=== PATIENT | female | born 1970 | race African-American/Black ===

== ENCOUNTER 2018-04-01 16:55 | Emergency (ER) | payer OTHER ==
[~2018-04-01] VITALS: Ht 162.6 cm; Wt 90.7 kg
[2018-04-01 17:29] VITALS: BP 126/80
--- NOTE | 2018-04-01 17:34 | PHYS DOC ---
Adult General Chief Complaint Chief Complaint: UPPER EXTREMITY PAIN HPI HPI Patient is a 47 year old female who presents with a request for medication for her carpal tunnel to her right wrist. The patient states that she is unable to get into her doctor and she is leaving to go on a cruise. She states that her carpal tunnel has been significantly acting up. She denies any recent injury. Review of Systems Review of Systems Constitutional: Denies fever or chills [] Eyes: Denies change in visual acuity, redness, or eye pain [] HENT: Denies nasal congestion or sore throat [] Respiratory: Denies cough or shortness of breath [] Cardiovascular: No additional information not addressed in HPI [] GI: Denies abdominal pain, nausea, vomiting, bloody stools or diarrhea [] : Denies dysuria or hematuria [] Musculoskeletal: See history of present illness Integument: Denies rash or skin lesions [] Neurologic: Denies headache, focal weakness or sensory changes [] Endocrine: Denies polyuria or polydipsia [] All other systems were reviewed and found to be within normal limits, except as documented in this note. Current Medications Current Medications Current Medications Medications (Trade) Dose Ordered Sig/Nancy Start Time Stop Time Status Last Admin Dose Admin Methylprednisolone Acetate (DEPO-Medrol 80MG VIAL) 80 mg 1X ONCE 04/01/18 17:45 04/01/18 17:46 DC 04/01/18 17:45 80 MG Allergies Allergies Allergies Coded Allergies Type Severity Reaction Last Updated Verified Penicillins Allergy Unknown 04/01/18 Yes Physical Exam Physical Exam Constitutional: Well developed, well nourished, no acute distress, non-toxic appearance. [] HENT: Normocephalic, atraumatic, bilateral external ears normal, oropharynx moist, no oral exudates, nose normal. [] Eyes: PERRLA, EOMI, conjunctiva normal, no discharge. [] Neck: Normal range of motion, no tenderness, supple, no stridor. [] Cardiovascular:Heart rate regular rhythm, no murmur [] Lungs & Thorax: Bilateral breath sounds clear to auscultation [] Abdomen: Bowel sounds normal, soft, no tenderness, no masses, no pulsatile masses. [] Skin: Warm, dry, no erythema, no rash. [] Back: No tenderness, no CVA tenderness. [] Extremities: tenderness to the right wrist with no calor or ecchymosis noted, no cyanosis, no clubbing, ROM intact, no edema or erythema. [] Neurologic: Alert and oriented X 3, normal motor function, normal sensory function, no focal deficits noted. [] Psychologic: Affect normal, judgement normal, mood normal. [] Current Patient Data Vital Signs Vital Signs Date Time Temp Pulse Resp B/P (MAP) Pulse Ox O2 Delivery O2 Flow Rate FiO2 04/01/18 17:29 97.9 86 18 126/80 (95) 99 Room Air 97.9 EKG EKG [] Radiology/Procedures Radiology/Procedures [] Course & Med Decision Making Course & Med Decision Making Pertinent Labs and Imaging studies reviewed. (See chart for details) []The patient was given Depo-Medrol in the emergency department for inflammation. She was also placed in a Velcro wrist splint for comfort. Dragon Disclaimer Dragon Disclaimer This electronic medical record was generated, in whole or in part, using a voice recognition dictation system. Departure Departure Impression: Primary Impression: Inadequate pain control Disposition: 01 HOME, SELF-CARE Condition: STABLE Referrals: UNKNOWN PCP NAME (PCP) Patient Instructions: Carpal Tunnel Syndrome Additional Instructions: Continue to use your at home pain medication. Follow-up with your primary care provider for further management of her carpal tunnel syndrome. If worsening return to the emergency department. SUSIE MCCULLOUGH APRN Apr 01, 2018 17:34
[2018-04-01] MEDS ORDERED: methylPREDNISolone ACETATE 80 MG/ML VIAL. IM ONE (17:45)
== END 2018-04-01 17:48 | disposition home or self-care (01) ==
LOC: ER 16:55
DX: M79.601 Pain in right arm (principal); G56.01 Carpal tunnel syndrome, right upper limb; Z88.0 Allergy status to penicillin
CPT/HCPCS: 29125; 96372; 99283; J1040

== ENCOUNTER 2019-09-29 16:24 | Emergency (ER) | payer OTHER ==
[~2019-09-29] VITALS: Ht 162.6 cm; Wt 90.9 kg
[2019-09-29 16:41] VITALS: BP 132/66
[2019-09-29] MEDS ORDERED: METH-38 PO (16:55)
[2019-09-29] MEDS ORDERED: NAPR-514 PO (16:55)
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
[2019-09-29] MEDS ORDERED: KETOROLAC 60 MG/2 ML VIAL. IM ONE (17:00)
[2019-09-29] MEDS ORDERED: ORPHENADRINE CITRATE 60 MG/2 ML VIAL. IM ONE (17:00)
== END 2019-09-29 17:01 | disposition home or self-care (01) ==
LOC: ER 16:34
DX: S33.5XXA Sprain of ligaments of lumbar spine, initial encounter (principal); M25.572 Pain in left ankle and joints of left foot; V49.9XXA Car occupant (driver) (passenger) injured in unspecified traffic accident, initial encounter; Y93.89 Activity, other specified; Y92.413 State road as the place of occurrence of the external cause; Y99.8 Other external cause status
CPT/HCPCS: 96372; 99284; J1885; J2360

== ENCOUNTER 2021-06-16 16:29 | Emergency (ER) | payer BC, OTHER ==
[~2021-06-16] VITALS: Ht 162.6 cm; Wt 97.7 kg
[~2021-06-16 16:29] MED LIST: METH-38 PO; NAPR-514 PO
[2021-06-16] MEDS ORDERED: ASPIRIN 325 MG TABLET PO ONE (17:00)
[2021-06-16 17:02] LABS: BASO # 0.1 x10^3/uL (0.0-0.2); BASO % 1 % (0-3); EOS # 0.1 x10^3/uL (0.0-0.7); EOS % 2 % (0-3); HEMATOCRIT 46.1 % (36.0-47.0); HEMOGLOBIN 15.3 g/dL (12.0-15.5); LYMPH # 1.4 x10^3/uL (1.0-4.8); LYMPH % 21 % (24-48); MEAN CORPUSCULAR HEMOGLOBIN 31 pg (25-35); MEAN CORPUSCULAR HGB CONC 33 g/dL (31-37); MEAN CORPUSCULAR VOLUME 93 fL (79-100); MONO # 0.3 x10^3/uL (0.0-1.1); MONO % 5 % (0-9); NEUT # 4.6 x10^3/uL (1.8-7.7); NEUT % 70 % (31-73); PLATELET COUNT 238 x10^3/uL (140-400); RED BLOOD COUNT 4.99 x10^6/uL (3.50-5.40); RED CELL DISTRIBUTION WIDTH 14.1 % (11.5-14.5); WHITE BLOOD COUNT 6.5 x10^3/uL (4.0-11.0)
[2021-06-16] MEDS: NITROGLYCERIN SUBLINGUAL 0.4 MG BOTTLE OF 25. SL PRN ×3 (17:13→18:07)
--- NOTE | 2021-06-16 17:13 | RAD ---
EXAM: Chest, single view. HISTORY: Chest pain. COMPARISON: None. FINDINGS: A frontal view of the chest is obtained. There is no infiltrate, pleural effusion or pneumo thorax. The heart is normal in size. IMPRESSION: No acute pulmonary finding. Electronically signed by: Anais Bradford MD (06/16/2021 5:10 PM) [facility]
[2021-06-16 17:21] LABS: CALCIUM 9.4 mg/dL (8.5-10.1); CREATININE 0.9 mg/dL (0.6-1.0); GFR 79.9; POTASSIUM 3.8 mmol/L (3.5-5.1)
[2021-06-16 17:27] LABS: ALBUMIN/GLOBULIN RATIO 1.1 (1.0-1.7); MAGNESIUM 1.9 mg/dL (1.8-2.4); TOTAL BILIRUBIN 0.4 mg/dL (0.2-1.0); TOTAL PROTEIN 7.6 g/dL (6.4-8.2)
[2021-06-16 17:28] LABS: BILIRUBIN,URINE NEGATIVE (NEG); CLARITY,URINE CLEAR; COLOR,URINE YELLOW; NITRITE,URINE NEGATIVE (NEG); PH,URINE 5.5 (<5.0-8.0); PROTEIN,URINE NEGATIVE (NEG-TRACE); UROBILINOGEN,URINE 0.2 mg/dL (0.2 mg/dL)
[2021-06-16 17:46] LABS: BACTERIA,URINE FEW /HPF (0-FEW); WBC,URINE OCC /HPF (0-4)
--- NOTE | 2021-06-16 18:05 | ED.ADGEN ---
Past Medical History Past Medical History: No Pertinent History Additional Past Medical Histor: FIBROMYALGIA Past Surgical History: Other Additional Past Surgical Histo: BREAST REDUCTION Smoking Status: Never Smoker Alcohol Use: Rarely Drug Use: None General Adult EDM: Chief Complaint: CHEST PAIN HPI: HPI: Patient is a 51 year old AA male who presents to the emergency department with complaints of substernal chest pain that began at approximately 1300 this afternoon when she was arguing with someone. Patient states that ever since then she has had a sharp pain in the center of her chest it does not get worse with deep breath, palpation, or movement. She states that the pain has been constant. Patient denies any diaphoresis, fever, cough, shortness of breath, wheezing, nausea, vomiting, abdominal pain, back pain, numbness, tingling, or weakness. She currently rates the pain a 10 out of 10 on the pain scale, she denies any alleviating or exacerbating factors. Patient reports her only medical history is fibromyalgia, she denies any family history of heart disease. Review of Systems: Review of Systems: Complete ROS is negative unless otherwise noted in the HPI. Current Medications: Current Medications Medications (Trade) Dose Ordered Sig/Nancy Start Time Stop Time Status Last Admin Dose Admin Aspirin (Arlyn Aspirin) 325 mg 1X ONCE 06/16/21 17:00 06/16/21 17:01 DC 06/16/21 17:13 325 MG Info (CONTRAST GIVEN -- Rx MONITORING) 1 each PRN DAILY PRN 06/16/21 20:45 06/16/21 23:04 DC Iohexol (Omnipaque 350 Mg/ml) 100 ml 1X ONCE 06/16/21 21:00 06/16/21 21:01 DC 06/16/21 21:07 100 ML Ketorolac Tromethamine (Toradol 15mg Vial) 15 mg 1X ONCE 06/16/21 23:00 06/16/21 23:01 DC 06/16/21 22:54 15 MG Nitroglycerin (Nitrostat) 0.4 mg PRN Q5MIN PRN 06/16/21 17:00 06/16/21 23:04 DC 06/16/21 18:07 0.4 MG Allergies: Allergies: Allergies Coded Allergies Type Severity Reaction Last Updated Verified Penicillins Allergy Unknown 04/01/18 Yes Physical Exam: PE: See above Constitutional: Well developed, well nourished, no acute distress, non-toxic appearance, obese. [] HENT: Normocephalic, atraumatic, bilateral external ears normal, nose normal. [] Eyes: PERRLA, EOMI, conjunctiva normal, no discharge. [] Neck: Normal range of motion, no stridor. [] Cardiovascular:Heart rate regular rhythm, no murmur, S1-S2 normal Lungs & Thorax: Respirations even and unlabored, no retractions, no respiratory distress, lungs CTA, no wheeze Abdomen: soft, no tenderness Skin: Warm, dry, no erythema, no rash. [] Extremities: No cyanosis, ROM intact, no edema. [] Neurologic: Alert and oriented X 3, normal motor, normal sensory, no focal deficits noted. [] Psychologic: Affect normal, judgement normal, mood normal. [] Current Patient Data: Labs: Laboratory Tests Test 06/16/21 16:50 06/16/21 17:20 06/16/21 20:02 White Blood Count 6.5 x10^3/uL (4.0-11.0) Red Blood Count 4.99 x10^6/uL (3.50-5.40) Hemoglobin 15.3 g/dL (12.0-15.5) Hematocrit 46.1 % (36.0-47.0) Mean Corpuscular Volume 93 fL (79-100) Mean Corpuscular Hemoglobin 31 pg (25-35) Mean Corpuscular Hemoglobin Concent 33 g/dL (31-37) Red Cell Distribution Width 14.1 % (11.5-14.5) Platelet Count 238 x10^3/uL (140-400) Neutrophils (%) (Auto) 70 % (31-73) Lymphocytes (%) (Auto) 21 % (24-48) L Monocytes (%) (Auto) 5 % (0-9) Eosinophils (%) (Auto) 2 % (0-3) Basophils (%) (Auto) 1 % (0-3) Neutrophils # (Auto) 4.6 x10^3/uL (1.8-7.7) Lymphocytes # (Auto) 1.4 x10^3/uL (1.0-4.8) Monocytes # (Auto) 0.3 x10^3/uL (0.0-1.1) Eosinophils # (Auto) 0.1 x10^3/uL (0.0-0.7) Basophils # (Auto) 0.1 x10^3/uL (0.0-0.2) Sodium Level 141 mmol/L (136-145) Potassium Level 3.8 mmol/L (3.5-5.1) Chloride Level 101 mmol/L (98-107) Carbon Dioxide Level 31 mmol/L (21-32) Anion Gap 9 (6-14) Blood Urea Nitrogen 11 mg/dL (7-20) Creatinine 0.9 mg/dL (0.6-1.0) Estimated GFR (Cockcroft-Gault) 79.9 BUN/Creatinine Ratio 12 (6-20) Glucose Level 152 mg/dL (70-99) H Calcium Level 9.4 mg/dL (8.5-10.1) Magnesium Level 1.9 mg/dL (1.8-2.4) Total Bilirubin 0.4 mg/dL (0.2-1.0) Aspartate Amino Transferase (AST) 12 U/L (15-37) L Alanine Aminotransferase (ALT) 27 U/L (14-59) Alkaline Phosphatase 115 U/L (46-116) Creatine Kinase 163 U/L (26-192) Creatine Kinase MB (Mass) 1.2 ng/mL (0.0-3.6) Creatine Kinase MB Relative Index 0.7 % (0-4) Troponin I High Sensitivity 8 ng/L (4-50) 7 ng/L (4-50) Total Protein 7.6 g/dL (6.4-8.2) Albumin 4.0 g/dL (3.4-5.0) Albumin/Globulin Ratio 1.1 (1.0-1.7) Lipase 43 U/L (73-393) L Urine Color Yellow Urine Clarity Clear Urine pH 5.5 (<5.0-8.0) Urine Specific [place] 1.020 (1.000-1.030) Urine Protein Negative mg/dL (NEG-TRACE) Urine Glucose (UA) Negative mg/dL (NEG) Urine Ketones (Stick) Negative mg/dL (NEG) Urine Blood Negative (NEG) Urine Nitrite Negative (NEG) Urine Bilirubin Negative (NEG) Urine Urobilinogen Dipstick 0.2 mg/dL (0.2 mg/dL) Urine Leukocyte Esterase Negative (NEG) Urine RBC 1-2 /HPF (0-2) Urine WBC Occ /HPF (0-4) Urine Squamous Epithelial Cells Many /LPF Urine Bacteria Few /HPF (0-FEW) Urine Mucus Slight /LPF Laboratory Tests 06/16/21 16:50 Laboratory Tests 06/16/21 16:50 Vital Signs: Vital Signs Date Time Temp Pulse Resp B/P (MAP) Pulse Ox O2 Delivery O2 Flow Rate FiO2 06/16/21 22:38 98 21 161/77 (105) 100 Room Air 06/16/21 16:29 98.7 98.7 EKG: EK-sinus rhythm, rate 94, leftward axis, no STEMI, read by Dr. Allen [] Heart Score: C/O Chest Pain: Yes HEART Score for Chest Pain: HEART Score for Chest Pain Response (Comments) Value History Slighlty/Non-Suspicious 0 ECG Normal 0 Age >45 - < 65 1 Risk Factors 1 or 2 Risk Factors 1 Troponin < Normal Limit 0 Total 2 Risk Factors: Risk Factors: HTN, obesity. Risk Scores: Score 0 - 3: 2.5% MACE over next 6 weeks - Discharge Home Score 4 - 6: 20.3% MACE over next 6 weeks - Admit for Clinical Observation Score 7 - 10: 72.7% MACE over next 6 weeks - Early Invasive Strategies Radiology/Procedures: Radiology/Procedures: PROCEDURE: CHEST AP ONLY EXAM: Chest, single view. HISTORY: Chest pain. COMPARISON: None. FINDINGS: A frontal view of the chest is obtained. There is no infiltrate, pleural effusion or pneumothorax. The heart is normal in size. IMPRESSION: No acute pulmonary finding. []IMAGING REPORT Signed PATIENT: ARIANNA MONROY ACCOUNT: [id number] : 1970 LOCATION: ER AGE: 51 SEX: F EXAM STATUS: REG ER ORD. PHYSICIAN: MICHEL WILKINSON APRN REASON: r/o PE chest pain , omni 350 100 ml iv PROCEDURE: CT ANGIOGRAPHY CHEST EXAM: CT ANGIOGRAPHY OF THE CHEST WITH AND WITHOUT CONTRAST. HISTORY: Chest pain. TECHNIQUE: Computed tomographic angiography of the chest was performed before and after the intravenous administration of iodinated contrast. 3-D maximum intensity projections were also performed. One or more of the following individualized dose reduction techniques were utilized for this examination: 1. Automated exposure control. 2. Adjustment of the mA and/or kV according to patient size. 3. Use of iterative reconstruction technique. COMPARISON: None. FINDINGS: Images of the upper abdomen reveal no acute abnormality. Bone windows reveal no suspicious lesions. Well-defined 1 cm lucent focus along the right aspect of the body is likely a benign lesion such as a hemangioma in the absence of known malignancy. No pulmonary emboli are identified. There is no aortic dissection or aneurysm. There is a common origin of the left common carotid and brachiocephalic arteries, a variant of normal. There are no pathologically enlarged mediastinal or axillary lymph nodes. There is no pleural or pericardial effusion. The heart is not enlarged. Lung windows reveal no infiltrates. There is mild basilar atelectasis. IMPRESSION: 1. No pulmonary embolism. No infiltrates. Electronically signed by: Yessica Powell MD (06/16/2021 9:25 PM) [facility] DICTATED and SIGNED BY: GLENYS POWELL MD DATE: 06/16/21 [id number] 0 Course & Med Decision Making: Course & Med Decision Making Pertinent Labs and Imaging studies reviewed. (See chart for details) 51-year-old female presents emergency department with substernal chest pain that began while she was arguing with someone today. Work-up included labs, imaging, EKGs, and a CT PE study. Patient was given 324 mg of aspirin and 3 sublingual nitro. After the first nitro her pain went from a 10 out of 10 to a 7 out of 10. After the second and third nitro as her pain remained unchanged. Patient's blood pressure remained elevated throughout her stay. At 2039 the patient's blood pressure is 170/81. Her initial troponin was 8, 3-hour troponin was 7. CBC was unremarkable, CMP revealed a blood glucose of 102, CK 163, CK-MB 1.2, CK-MB index of 0.7. Otherwise unremarkable, UA was also unremarkable. Chest x-ray did not reveal any acute findings. I discussed all the results with the patient who became tachycardic while he was in the room with a rate of 105, she was not in any pain at this time her blood pressure did remained elevated at 170/81. I discussed the patient's case with Dr. Robbins who recommended a CT PE study, PE study was ordered. Dr. Robbins will follow up with patient for final disposition. I did advise the patient that she needed to follow-up with her primary care doctor for further evaluation of her elevated high blood pressure. I reevaluated patient with her mother at bedside, (patient consents to his/her/their knowledge and involvement in pts' medical care). Patient complains of sharp, sternal, nonradiating and reproducible chest pain that occurred in a stressful situation earlier today. Also reports associated palpitations. CT angio of the chest shows no aortic aneurysm, dissection or pulmonary embolus. Troponins are unremarkable. I also reviewed patient's EKGs that showed no active ischemia. On reevaluation, patient is calm, resting and feels well to return home. Reports her pain has almost resolved. Blood pressure has improved on evaluation with no evidence of renal damage. Do suspect some anxiety related component but given age and blood pressure will rec ommend for outpatient follow-up. Will discharge home with strict ED return precautions were given for worsening pain, syncope, neurologic deficits or fever. Encouraged urgent outpatient follow-up with PMD for reevaluation, consider nonemergent outpatient cardiology evaluation. Life-threatening proc esses were considered but are low suspicion at this time, given history, physical exam and ED workup. Pt was educated on all prescription medications and adverse effects. All patient's questions were answered and pt was stable at time of discharge. Life/limb-threatening differential includes but is not limited to, acute myocardial infarction, aortic dissection, congestive heart failure, esophageal injury including rupture, surgical abdomen, arrhythmia, cardiomyopathy, myocarditis, pericarditis, peptic ulcer disease, pneumomediastinum, pneumonia, pneumothorax, pulmonary embolus, unstable angina, rib fracture, contusion, pericardial tamponade or effusion, traumatic injury including mediastinal hemorrhage or hematoma, or pulmonary contusion. I have spoken with the patient and/or caregivers. I explained the patient's condition, diagnoses and treatment plan based on the information available to me at this time. I have answered the patient and/or caregiver's questions and addressed any concerns. The patient and/or caregivers have a good understanding of patient's diagnosis, condition and treatment plan as can be expected at this point. Vital signs have been stable. Patient's condition is stable and appropriate for discharge from the emergency department. Patient will pursue further outpatient evaluation with primary care physician or other designated or consulting physician as outlined in the discharge instructions. The patient and/or caregivers are agreeable to this plan of care and follow-up instructions have been explained in detail. The patient and/or caregivers have received these instructions in written form and have expressed an understanding of the discharge instructions. The patient and/or caregivers are aware that any significant change of condition or worsening of symptoms should prompt immediate return to this or the closest emergency department [facility] Disclaimer: Nisa Disclaimer: This electronic medical record was generated, in whole or in part, using a voice recognition dictation system. Departure Departure Impression: Primary Impression: Chest pain Additional Impression: High blood pressure Disposition: HOME / SELF CARE / HOMELESS Condition: STABLE Referrals: UNKNOWN PCP NAME (PCP) Follow-up with your primary care physician in 24 to 48 hours OR FOLLOW UP WITH FAMILY MEDICINE: [address] [facility], [address] [place] [address] Patient Instructions: Chest Pain (Nonspecific), [id number], Hypertension, [id number] Additional Instructions: Follow up with your primary care doctor for further evaluation of your blood pressure in the next few days FOLLOW UP WITH CARDIOLOGY: FOR DEFINITIVE MANAGEMENT [facility] [address] [facility] [address] [place] [address] EMERGENCY DEPARTMENT GENERAL DISCHARGE INSTRUCTIONS Thank you for coming to [facility] Emergency Department (ED) today and trusting us with you care. We trust that you had a positive experience in our Emergency Department. If you wish to speak to the department management, you may call the Director at [phone]. YOUR FOLLOW UP INSTRUCTIONS ARE FOLLOWS: 1. Do you have a private Doctor? If you do not have a private doctor, please ask for a resource list of physicians or clinics that may be able to assist you with follow up care. 2. The Emergency Physicain has interpreted your x-rays. The X-Ray specialist will also review them. If there is a change in the findings, you will be notified in 48 h ours when at all possible. 3. A lab test or culture has been done, your results will be reviewed and you will be notified if you need a change in treatment. ADDITIONAL INSTRUCTIONS AND INFORMATION: 1. Your care today has been supervised by a physician who is specially trained in emergency care. Many problems require more than one evaluation for a complete diagnosis and treatment. We recommend that you schedule your follow up appointment as recommended to ensure complete treatment of you illness or injury. If you are unable to obtain follow up care and continue to have a problem, or if your condition worsens, we recommend that you return to the ED. 2. We are not able to safely determine your condition over the phone nor are we able to give sound medical advice over the phone. For these safety reasons, if you call for medical advice we will ask you to come to the ED for further evaluation. 3. If you have any questions regarding these discharge instructions please call the ED at [phone]. SAFETY INFORMATION: In the interest of safety, wellness, and injury prevention; we encourage you to wear your sealbelt, if you smoke; quite smoking, and we encourage family to use a protective helmet for bicycling and other sporting events that present an increased risk for head injury. IF YOUR SYMPTOMS WORSEN OR NEW SYMPTOMS DEVELOP, OR YOU HAVE CONCERNS ABOUT YOUR CONDITION; OR IF YOUR CONDITION WORSENS WHILE YOU ARE WAITING FOR YOUR FOLLOW UP APPOINTMENT; EITHER CONTACT YOUR PRIMARY CARE DOCTOR, THE PHYSICIAN WHOSE NAME AND NUMBER YOU WERE GIVEN, OR RETURN TO THE ED IMMEDIATELY. Problem Qualifiers Primary Impression: Chest pain Chest pain type: unspecified Qualified Codes: R07.9 - Chest pain, unspecified Additional Impression: High blood pressure Hypertension type: unspecified Qualified Codes: I10 - Essential (primary) hypertension MICHEL WILKINSON APRN Jun 16, 2021 18:05 JASON ROBBINS DO Jun 16, 2021 22:03
--- NOTE | 2021-06-16 18:11 | EKG ---
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
--- NOTE | 2021-06-16 19:59 | EKG ---
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
[2021-06-16] MEDS ORDERED: CONTRAST GIVEN. MC PRN (20:45)
[2021-06-16] MEDS ORDERED: IOHEXOL 350 MG/ML 100 ML VIAL. IV ONE (21:00)
--- NOTE | 2021-06-16 21:27 | RAD ---
EXAM: CT ANGIOGRAPHY OF THE CHEST WITH AND WITHOUT CONTRAST. HISTORY: Chest pain. TECHNIQUE: Computed tomographic angiography of the chest was performed before and after the intraveno us administration of iodinated contrast. 3-D maximum intensity projections were also performed. One o r more of the following individualized dose reduction techniques were utilized for this examination: 1. Automated exposure control. 2. Adjustment of the mA and/or kV according to patient size. 3. Use of iterative reconstruction technique. COMPARISON: None. FINDINGS: Images of the upper abdomen reveal no acute abnormality. Bone windows reveal no suspicious lesions. Well-defined 1 cm lucent focus along the right aspect of the body is likely a benign lesion such as a hemangioma in the absence of known malignancy. No pulmonary emboli are identified. There is no aortic dissection or aneurysm. There is a common orig in of the left common carotid and brachiocephalic arteries, a variant of normal. There are no pathologically enlarged mediastinal or axillary lymph nodes. There is no pleural or bayron cardial effusion. The heart is not enlarged. Lung windows reveal no infiltrates. There is mild basilar atelectasis. IMPRESSION: 1. No pulmonary embolism. No infiltrates. Electronically signed by: Yessica Powell MD (06/16/2021 9:25 PM) [facility]
[2021-06-16 22:38] VITALS: BP 161/77
[2021-06-16] MEDS ORDERED: KETOROLAC 15 MG/ML VIAL. IVP ONE (23:00)
== END 2021-06-16 23:03 | disposition home or self-care (01) ==
LOC: ER 16:29
DX: R07.2 Precordial pain (principal); R03.0 Elevated blood-pressure reading, without diagnosis of hypertension; Z88.0 Allergy status to penicillin
CPT/HCPCS: 36415; 71045; 71275; 80053; 81001; 82553; 83690; 83735; 84484; 85025; 93005; 96374; 99285; J1885; Q9967

== ENCOUNTER → 2021-08-05 | Outpatient (CLI) | payer BC ==
[~2021-08-05] MED LIST changes: +IBUP-1027 PO; +LEVO500T9 PO; +MELO15TA23 PO; +PANT40TA77 PO
--- NOTE | 2021-08-06 12:22 | RAD ---
MR#: [id number] Date of Study: 08/05/2021 Ordering Physician: SHARIFA JEAN, Referring Physician: FROY FITZGERALD Tech: KIRIT Sanchez, MARLENI (R) (N) APPROVED REPORT Test Type: Exercise Stress Nurse/Tech: RT Amos (R) (N) Test Indications: chest pain Cardiac History: No known cardiac Medications: See Electronic Medical Record Medical History: See Electronic Medical Record Resting ECG: ST Resting Heart Rate: 102 bpm Resting Blood Pressure: 138/78mmHg Pretest Chest Pain: No chest pain Nurse/Tech Notes S1,S2 and lungs clear to auscultation. Consent: The procedure was explained to the patient in lay terms. Informed consent was witnessed. Christopher eout was entered into Diana. History and Stress Test performed by RT Emiliano Trinidad) (N) Stress Symptoms Dyspnea,tightness POST EXERCISE Reason for Termination: Reached target heart rate Target HR: Yes Max HR: 169 bpm 118% of Maximum Predicted HR: 143 bpm Exercise duration: 7:25 min:sec, 3 Stage Exercise capacity: 10.0METs Max Blood Pressure: 165/82mmHg Blood Pressure response to exercise: Normal blood pressure response during stress. Heart Rate response to exercise: WNL Chest Pain: Yes. Tightness Arrhythmia: No. ST Change: No. INTERPRETATION Stress EKG Conclusion: No evidence of stress induce EKG changes. Imaging Protocol IMAGE PROTOCOL: Rest Tc-99m/stress Tc-99m 1 day Rest: Stress: Viability: Radiopharm.Tc99m [id number] Sestamibi Dose10.3mCi 31.7mCi Img Date 08/05/2021 08/05/2021 Inj-Img [id number]. 60min. Rest Admin Site:IV - Right AntecubitalAdministrator:KIRIT Sanchez ARRT (R)(N) Stress Admin Site: IV - Right AntecubitalAdministrator: RT Emiliano Trinidad)(N) STRESS DATA End Diast. Vol.63.0mlAv. Heart Wllv410.0bpm End Syst. Vol.7.0mlCO Index BSA0.0L/min Myocardial Qpsz468.0gEject. Pfeougzc06.0% Stress Rates Pk. Fill Rate5.24EDV/secLVtime Pk. Fill 140.57msec Pk. Empty Rate7.50ESV/secLVtime Pk. Ktffx189.72msec 1/3 Pk. Fill1.45EDV/sec Stress Scores Regional WT2.00Summed WT10.00 Regional WM0.00Summed WM0.00 The rest and stress images show normal perfusion, normal contraction and thickening. LV Perf. Quant 17 Seg. SSS0.00 17 Seg. SRS1.00 17 Seg. SDS0.00 Stress Defect Extent (% LAD)0.00Rest Defect Extent (% LAD)4.40Rev. Defect Extent (% LAD)0.00 Stress Defect Extent (% LCX) 0.00Rest Defect Extent (% LCX)0.00Rev. Defect Extent (% LCX)0.00 Stress Defect Extent (% RCA)0.00Rest Defect Extent (% RCA)0.00Rev. Defect Extent (% RCA)0.00 Stress Defect Extent (% CASSIE)0.00Rest Defect Extent (% CASSIE)3.00Rev. Defect Extent (% CASSIE)0.00 Conclusion 1. Above average exercise capacity. 2. No evidence of EKG changes with stress testing. 3. Normal perfusion at stress/rest. 4. Low risk study. 5. EF > 60%. Signed by : Maximus Oliver, Electronically Approved : 08/06/2021 12:22:21
== END ==
LOC: NM 08:45
PROVIDERS: ATTEND Internal Medicine Cardiovascular Disease
DX: R07.9 Chest pain, unspecified (principal)
CPT/HCPCS: 78452; 93017; A9500

== ENCOUNTER 2021-08-08 19:58 | Inpatient (IN) | payer BC ==
[~2021-08-08] VITALS: Ht 162.6 cm; Wt 104.4 kg
[~2021-08-08 19:58] MED LIST changes: -IBUP-1027 PO; -LEVO500T9 PO; -MELO15TA23 PO; -PANT40TA77 PO
[2021-08-08] MEDS ORDERED: KETOROLAC 15 MG/ML VIAL. IVP ONE (20:30)
[2021-08-08] MEDS ORDERED: ACETAMINOPHEN 500 MG TABLET PO ONE (20:30)
[2021-08-08] MEDS ORDERED: IV NORMAL SALINE 1000ML BAG 1,000 ML IV ONE ×2 (20:30→22:45)
[2021-08-08] MEDS ORDERED: ONDANSETRON PF 4 MG/2 ML VIAL. IVP ONE (20:30)
[2021-08-08 20:43] LABS: BASO % 0 % (0-3); EOS % 0 % (0-3); HEMOGLOBIN 12.4 g/dL (12.0-15.5); LYMPH # 0.9 x10^3/uL (1.0-4.8); LYMPH % 10 % (24-48); MEAN CORPUSCULAR HEMOGLOBIN 31 pg (25-35); MEAN CORPUSCULAR HGB CONC 34 g/dL (31-37); MEAN CORPUSCULAR VOLUME 92 fL (79-100); MONO # 0.7 x10^3/uL (0.0-1.1); MONO % 7 % (0-9); NEUT # 7.8 x10^3/uL (1.8-7.7); NEUT % 83 % (31-73); PLATELET COUNT 296 x10^3/uL (140-400); RED BLOOD COUNT 3.94 x10^6/uL (3.50-5.40); RED CELL DISTRIBUTION WIDTH 13.2 % (11.5-14.5); WHITE BLOOD COUNT 9.5 x10^3/uL (4.0-11.0)
--- NOTE | 2021-08-08 20:49 | RAD ---
Exam: Chest one view INDICATION: Chest pain, short of air TECHNIQUE: Frontal view of the chest Comparisons: 06/16/2021 FINDINGS: The cardiomediastinal silhouette and pulmonary vessels are within normal limits. Small left pleural effusion. Lungs are otherwise clear. IMPRESSION: Small left pleural effusion. Electronically signed by: Rimma Nelson MD (08/08/2021 8:46 PM) [facility]
[2021-08-08 20:53] LABS: PROTHROMBIN TIME PATIENT 16.1 SEC (11.7-14.0)
[2021-08-08 20:54] LABS: CALCIUM 9.6 mg/dL (8.5-10.1); CREATININE 1.1 mg/dL (0.6-1.0); GFR 63.4; POTASSIUM 4.2 mmol/L (3.5-5.1)
[2021-08-08 21:00] LABS: ALBUMIN 3.1 g/dL (3.4-5.0); ALBUMIN/GLOBULIN RATIO 0.6 (1.0-1.7); TOTAL BILIRUBIN 0.4 mg/dL (0.2-1.0); TOTAL PROTEIN 7.9 g/dL (6.4-8.2)
[2021-08-08 21:23] LABS: INFLUENZA A PATIENT NEGATIVE (NEGATIVE); INFLUENZA B PATIENT NEGATIVE (NEGATIVE)
[2021-08-08] MEDS ORDERED: IOHEXOL 350 MG/ML 100 ML VIAL. IV ONE (22:30)
[2021-08-08] MEDS ORDERED: CONTRAST GIVEN. MC PRN (22:30)
--- NOTE | 2021-08-08 22:42 | PHYS DOC ---
Past Medical History Past Medical History: No Pertinent History Additional Past Medical Histor: FIBROMYALGIA Past Surgical History: Other Additional Past Surgical Histo: BREAST REDUCTION Smoking Status: Never Smoker Alcohol Use: None Drug Use: None Adult General Chief Complaint Chief Complaint: SHORTNESS OF BREATH HPI HPI The patient is a 51-year-old female without significant past medical history and a non-smoker. She has received both Covid vaccinations. She presents for evaluation of shortness of breath with exertion, intermittent midsternal chest pressure and generalized malaise, all with onset over the past 2 days. Patient states she gets winded when she walks around and this is new for her. She is febrile here and quite tachycardic, with a sinus rhythm noted on the monitor. But other vital signs are appropriate. Patient had what sounds like a dobutamine stress test 2 days ago, which she links her symptoms to, but does tell me that symptoms started the evening of the day she had the stress test, not right after it. Patient is alert, pleasantly and appropriately interactive and in no acute distress. She denies vomiting, headache, neck pain/stiffness/meningismus, upper respiratory congestion/rhinorrhea, cough, sore throat, josef substernal chest pain, flank pain, midline back pain, abdominal pain, dysuria, hematuria, polyu marlen or oliguria, changes in bowel habits, pain or swelling to arms or legs. Review of Systems Review of Systems A 12 point review of systems was completed and was negative except where noted in HPI above. Current Medications Current Medications Current Medications Medications (Trade) Dose Ordered Sig/Nancy Start Time Stop Time Status Last Admin Dose Admin Acetaminophen (Tylenol) 1,000 mg 1X ONCE 08/08/21 20:30 08/08/21 20:33 DC 08/08/21 20:51 1,000 MG Info (CONTRAST GIVEN -- Rx MONITORING) 1 each PRN DAILY PRN 08/08/21 22:30 08/10/21 22:29 Iohexol (Omnipaque 350 Mg/ml) 100 ml 1X ONCE 08/08/21 22:30 08/08/21 22:31 DC Ketorolac Tromethamine (Toradol 15mg Vial) 15 mg 1X ONCE 08/08/21 20:30 08/08/21 20:33 DC 08/08/21 20:50 15 MG Ondansetron HCl (Zofran) 4 mg 1X ONCE 08/08/21 20:30 08/08/21 20:33 DC 08/08/21 20:50 4 MG Sodium Chloride 1,000 ml @ 1,000 mls/hr 1X ONCE 08/08/21 22:45 08/08/21 23:44 DC 08/08/21 23:30 1,000 MLS/HR Allergies Allergies Allergies Coded Allergies Type Severity Reaction Last Updated Verified Penicillins Allergy Unknown 04/01/18 Yes Physical Exam Physical Exam Middle-aged female appearing nontoxic and in no acute distress. Head is normocephalic and atraumatic. Neck is supple and nontender. Patient ranges neck fully in all dimensions without discomfort or distress and there is no stiff/rigidity/meningismus seen. Oropharynx is moist. Lungs are clear to auscultation at all stations. There is a normal S1 and S2 without rubs or gallops and capillary refill is appropriate, less than 2 seconds globally. Abdo men is soft, nontender and nondistended. No pulsatile mass. Skin is warm and dry without cyanosis, clubbing or edema. Psychiatrically, the patient demonstrates appropriate mood and affect and is alert. Evaluation of the extremities reveals BUEs and BLEs neurovascularly intact distally strength 5-5, sensation intact light touch in all nerve attributions, radial, DP and PT pulse 2+ bilaterally, capillary refill less than 2 seconds, hands and feet warm and well-perfused. No dependent peripheral edema distally. No calf tenderness swelling bilaterally. Homans test is negative bilaterally. Current Patient Data Vital Signs Vital Signs Date Time Temp Pulse Resp B/P (MAP) Pulse Ox O2 Delivery O2 Flow Rate FiO2 08/09/21 00:40 116 33 106/74 (85) 96 Room Air 08/08/21 20:00 100.9 100.9 Lab Values Laboratory Tests Test 08/08/21 20:28 08/08/21 20:57 08/08/21 23:30 White Blood Count 9.5 x10^3/uL (4.0-11.0) Red Blood Count 3.94 x10^6/uL (3.50-5.40) Hemoglobin 12.4 g/dL (12.0-15.5) Hematocrit 36.0 % (36.0-47.0) Mean Corpuscular Volume 92 fL (79-100) Mean Corpuscular Hemoglobin 31 pg (25-35) Mean Corpuscular Hemoglobin Concent 34 g/dL (31-37) Red Cell Distribution Width 13.2 % (11.5-14.5) Platelet Count 296 x10^3/uL (140-400) Neutrophils (%) (Auto) 83 % (31-73) H Lymphocytes (%) (Auto) 10 % (24-48) L Monocytes (%) (Auto) 7 % (0-9) Eosinophils (%) (Auto) 0 % (0-3) Basophils (%) (Auto) 0 % (0-3) Neutrophils # (Auto) 7.8 x10^3/uL (1.8-7.7) H Lymphocytes # (Auto) 0.9 x10^3/uL (1.0-4.8) L Monocytes # (Auto) 0.7 x10^3/uL (0.0-1.1) Eosinophils # (Auto) 0.0 x10^3/uL (0.0-0.7) Basophils # (Auto) 0.0 x10^3/uL (0.0-0.2) Prothrombin Time 16.1 SEC (11.7-14.0) H Prothrombin Time INR 1.3 (0.8-1.1) H Activated Partial Thromboplast Time 42 SEC (24-38) H Sodium Level 135 mmol/L (136-145) L Potassium Level 4.2 mmol/L (3.5-5.1) Chloride Level 99 mmol/L (98-107) Carbon Dioxide Level 30 mmol/L (21-32) Anion Gap 6 (6-14) Blood Urea Nitrogen 15 mg/dL (7-20) Creatinine 1.1 mg/dL (0.6-1.0) H Estimated GFR (Cockcroft-Gault) 63.4 BUN/Creatinine Ratio 14 (6-20) Glucose Level 142 mg/dL (70-99) H Lactic Acid Level 0.6 mmol/L (0.4-2.0) Calcium Level 9.6 mg/dL (8.5-10.1) Total Bilirubin 0.4 mg/dL (0.2-1.0) Aspartate Amino Transferase (AST) 21 U/L (15-37) Alanine Aminotransferase (ALT) 48 U/L (14-59) Alkaline Phosphatase 127 U/L (46-116) H Troponin I High Sensitivity 4 ng/L (4-50) JE-Hnd-U-Type Natriuretic Peptide 68 pg/mL (0-124) Total Protein 7.9 g/dL (6.4-8.2) Albumin 3.1 g/dL (3.4-5.0) L Albumin/Globulin Ratio 0.6 (1.0-1.7) L Procalcitonin 0.10 ng/mL (0.00-0.10) Thyroid Stimulating Hormone (TSH) 1.055 uIU/mL (0.358-3.74) Influenza Type A Antigen Negative (NEGATIVE) Influenza Type B Antigen Negative (NEGATIVE) SARS-CoV-2 Antigen (Rapid) Negative (NEGATIVE) Urine Collection Type Void Urine Color (Auto) Light yellow Urine Turbidity Clear Urine pH (Auto) 6.0 (<5.0-8.0) Urine Specific [place] 1.038 (1.000-1.030) Urine Protein (Auto) Negative mg/dL (Negative) Urine Glucose (Auto)(UA) Negative mg/dL (Negative) Urine Ketones (Auto) Negative mg/dL (Negative) Urine Blood (Auto) Small (Negative) Urine Nitrite Negative (Negative) Urine Bilirubin (Auto) Negative (Negative) Urine Urobilinogen (Auto) Normal mg/dL (Normal) Urine Leukocyte Esterase (Auto) Negative (Negative) Urine RBC 1-2 /HPF (0-2) Urine WBC 5-10 /HPF (0-4) Urine Squamous Epithelial Cells Mod /LPF Urine Bacteria Few /HPF (0-FEW) Urine Mucus Slight /LPF Laboratory Tests 08/08/21 20:28 Laboratory Tests 08/08/21 20:28 EKG EKG Sinus rhythm, rate 136, no acute ST elevation or depression, MN 114, QRS 72, QTc 394, EP interpretation. Nonischemic tracing, intervals appropriate. Radiology/Procedures Radiology/Procedures Exam: Chest one view INDICATION: Chest pain, short of air TECHNIQUE: Frontal view of the chest Comparisons: 06/16/2021 FINDINGS: The cardiomediastinal silhouette and pulmonary vessels are within normal limits. Small left pleural effusion. Lungs are otherwise clear. IMPRESSION: Small left pleural effusion. Electronically signed by: Rimma Anaya MD (08/08/2021 8:46 PM) [facility] DICTATED and SIGNED BY: RIMMA ANAYA MD DATE: 08/08/212042 EXAM: CT chest with contrast - pulmonary embolus protocol CLINICAL HISTORY: Reason: SOA, tachycardia COMPARISON: 06/16/2021. TECHNIQUE: CT of the chest following the administration of intravenous contrast during the pulmonary arterial phase. Axial, coronal and sagittal reformatted images were generated including MIP images. ---PQRS compliance statement - One or more of the following individualized dose reduction techniques were utilized for this study: 1. Automated exposure control 2. Adjustment of the mA and/or kV according to patient size 3. Use of iterative reconstruction technique--- FINDINGS: CHEST: Technical factors resulted in delay in CT scanning following contrast administration. Minimal contrast is seen within the vasculature. Therefore this is nondiagnostic for the evaluation for pulmonary embolus. Within these cons traints: Heart is not enlarged. There is a moderate pericardial effusion with enhancement of the pericardial wall, suspicious for pericarditis and can be further assessed by echocardiogram. This pericardial effusion is new compared to 06/16/2021. Trace pleural effusions. Dependent airspace opacities bilateral lower lobes, greater on the right likely consolidative process such as pneumonia. No chula picious lung nodule or mass. No mediastinal or hilar lymphadenopathy. No axillary lymphadenopathy. Visualized Upper abdomen: Contrast is partially profiled in the medial collecting systems. Bones: Osseous structures are stable. Degenerative changes mid thoracic spine. IMPRESSION: 1. Technical factors resulted in delay in CT scanning following contrast administration. Minimal contrast is seen within the vasculature. Therefore this is nondiagnostic for the evaluation for pulmonary embolus. 2. There is a moderate pericardial effusion with enhancement of the pericardial wall, suspicious for pericarditis and can be further assessed by echocardiogram. 3. Trace pleural effusions. 4. Airspace opacities lower lobes likely consolidative processes pneumonia. Electronically signed by: Edgar Chapman MD (08/09/2021 12:05 AM) [facility] DICTATED and SIGNED BY: EDGAR CHAPMAN MD DATE: 08/08/21 7365 Course & Med Decision Making Course & Med Decision Making Labs and imaging thus far are nonacute aside from a left pleural effusion of unknown significance seen on CXR. Patient's fever has broken but she remains markedly tachycardic at about 126 bpm on the monitor. Will obtain advanced imaging of the chest to further characterize her symptoms. We will give a second liter of IV fluids. Update: CT imaging of the chest is as above, concerning for moderate pericardial effusion with a suggestion of pericardial wall inflammation. Impression is pericarditis with fever and pericardial effusion without tamponade physiology, but with some degree of mild pump dysfunction given persistent tachycardia and bibasilar infiltrates which are likely fluid. Do not see a clear indication to cover for bacterial pneumonia right now but will give initial dose of NSAIDs and colchicine. Will admit for further care, to include cardiology consultation and probable echocardiogram. Dr. Huertas graciously accepts. Critical care time was 42 minutes today. Dragon Disclaimer Dragon Disclaimer This electronic medical record was generated, in whole or in part, using a voice recognition dictation system. Departure Departure Impression: Primary Impression: Acute pericarditis Additional Impression: Pericardial effusion Disposition: ADMITTED INPATIENT Condition: GUARDED Referrals: NON,STAFF (PCP) Problem Qualifiers Primary Impression: Acute pericarditis Pericarditis type: other type Qualified Codes: I30.8 - Other forms of acute pericarditis ROXI HOGUE MD Aug 08, 2021 22:42
[2021-08-08 23:42] LABS: BACTERIA,URINE FEW /HPF (0-FEW)
--- NOTE | 2021-08-09 00:08 | RAD ---
EXAM: CT chest with contrast - pulmonary embolus protocol CLINICAL HISTORY: Reason: SOA, tachycardia COMPARISON: 06/16/2021. TECHNIQUE: CT of the chest following the administration of intravenous contrast during the pulmonary arterial phase. Axial, coronal and sagittal reformatted images were generated including MIP images. ---PQRS compliance statement - One or more of the following individualized dose reduction techniques were utilized for this study: 1. Automated exposure control 2. Adjustment of the mA and/or kV according to patient size 3. Use of iterative reconstruction technique--- FINDINGS: CHEST: Technical factors resulted in delay in CT scanning following contrast administration. Minimal contras t is seen within the vasculature. Therefore this is nondiagnostic for the evaluation for pulmonary em bolus. Within these constraints: Heart is not enlarged. There is a moderate pericardial effusion with enhancement of the pericardial w all, suspicious for pericarditis and can be further assessed by echocardiogram. This pericardial effu yareli is new compared to 06/16/2021. Trace pleural effusions. Dependent airspace opacities bilateral lower lobes, greater on the right lik darron consolidative process such as pneumonia. No suspicious lung nodule or mass. No mediastinal or hil ar lymphadenopathy. No axillary lymphadenopathy. Visualized Upper abdomen: Contrast is partially profiled in the medial collecting systems. Bones: Osseous structures are stable. Degenerative changes mid thoracic spine. IMPRESSION: 1. Technical factors resulted in delay in CT scanning following contrast administration. Minimal con trast is seen within the vasculature. Therefore this is nondiagnostic for the evaluation for pulmonar y embolus. 2. There is a moderate pericardial effusion with enhancement of the pericardial wall, suspicious for pericarditis and can be further assessed by echocardiogram. 3. Trace pleural effusions. 4. Airspace opacities lower lobes likely consolidative processes pneumonia. Electronically signed by: Edgar Maxwell MD (08/09/2021 12:05 AM) [facility]
[2021-08-09] MEDS ORDERED: PROCHLORPERAZINE 10 MG/2 ML VIAL. IM PRN (02:45)
[2021-08-09 03:00] VITALS: BP 112/61
[2021-08-09] MEDS ORDERED: KETOROLAC 15 MG/ML VIAL. IVP PRN (04:15)
[2021-08-09] MEDS ORDERED: MELO15TA23 PO (04:41)
[2021-08-09] MEDS ORDERED: COLCHICINE 0.6 MG TABLET PO ONE (05:30)
[2021-08-09] MEDS ORDERED: ONDANSETRON PF 4 MG/2 ML VIAL. IVP PRN ×2 (05:30→14:00)
[2021-08-09] MEDS ORDERED: ACETAMINOPHEN 325 MG TABLET. PO PRN ×2 (05:30→14:00)
[2021-08-09] MEDS ORDERED: IBUPROFEN 400 MG TABLET. PO ONE (05:30)
--- NOTE | 2021-08-09 07:32 | EKG ---
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
[2021-08-09 08:04] VITALS: BP 144/71
--- NOTE | 2021-08-09 08:31 | NUR ---
Pt report called to JANIS Lopez on [facility]. Patient transferred to the floor in stable condition per wheelchair, with belongings in stable condition.
[2021-08-09 08:35] VITALS: BP 125/85
[2021-08-09] MEDS: KETOROLAC 15 MG/ML VIAL. IVP PRN ×2 (11:38→21:00)
--- NOTE | 2021-08-09 11:48 | PDOC2 ---
CARDIOLOGY CONSULT NOTE DATE OF SERVICE: DATE: 08/09/21 TIME: 11:42 CHIEF COMPLAINT: Chest pain, shortness of air HPI: Patient is a 51 yo f who presented to the ED yesterday for SOB worsening over the last several days. Patient states she presented to the ED with CP and JORDAN approximately one month ago and was discharged. Reports she was then referred to cardiology for a stress test several days ago which she believes exacerbated her symptoms. As of this week her SOB has progressed to the point she was unable to continue her normal exercise regime. States her CP is intermittent and radiates to her L shoulder. Endorses orthopnea for the last several days as well. PMHX: HTN Fibromyagia SOCHX: No alcohol, tob or illicits. FAMHX: NC CURRENT MEDS: Current Medications Medications (Trade) Dose Ordered Sig/Nancy Route PRN Reason Start Time Stop Time Status Last Admin Dose Admin Sodium Chloride 1,000 ml @ 1,000 mls/hr 1X ONCE IV 08/08/21 20:30 08/08/21 21:29 DC 08/08/21 20:30 Acetaminophen (Tylenol) 1,000 mg 1X ONCE PO 08/08/21 20:30 08/08/21 20:33 DC 08/08/21 20:51 Ketorolac Tromethamine (Toradol 15mg Vial) 15 mg 1X ONCE IVP 08/08/21 20:30 08/08/21 20:33 DC 08/08/21 20:50 Ondansetron HCl (Zofran) 4 mg 1X ONCE IVP 08/08/21 20:30 08/08/21 20:33 DC 08/08/21 20:50 Sodium Chloride 1,000 ml @ 1,000 mls/hr 1X ONCE IV 08/08/21 22:45 08/08/21 23:44 DC 08/08/21 23:30 Ketorolac Tromethamine (Toradol 15mg Vial) 15 mg PRN Q6HRS PRN IVP INFLAMMATION 08/09/21 04:15 08/09/21 11:06 DC 08/09/21 04:18 Ibuprofen (Motrin) 800 mg 1X ONCE PO 08/09/21 05:30 08/09/21 05:31 DC 08/09/21 05:56 Colchicine (Colcrys) 0.6 mg 1X ONCE PO 08/09/21 05:30 08/09/21 05:31 DC 08/09/21 05:55 Ketorolac Tromethamine (Toradol 15mg Vial) 15 mg PRN Q6HRS PRN IVP INFLAMMATION 08/09/21 11:15 08/14/21 11:14 08/09/21 11:38 ALLERGIES: Allergies Coded Allergies Type Severity Reaction Last Updated Verified Penicillins Allergy Unknown 04/01/18 Yes ROS: Negative for 02/07 systems reviewed unless noted above in HPI PHYSICAL EXAM: Vital Signs/I&O: Vital Signs Date Time Temp Pulse Resp B/P (MAP) Pulse Ox O2 Delivery O2 Flow Rate FiO2 08/09/21 09:42 Room Air 08/09/21 08:04 98.1 25 144/71 (95) 98.1 08/09/21 03:00 122 92 I & O 08/08/21 08/08/21 08/09/21 15:00 23:00 07:00 Intake Total 2400 ml Balance 2400 ml Physical Exam: GEN.: No apparent distress. Alert and oriented. HEENT: Head is normocephalic, atraumatic NECK: Supple. LUNGS: Clear to auscultation. HEART: RRR, S1, S2 present. Peripheral pulses intact ABDOMEN: Soft, nontender. Positive bowel sounds. EXTREMITIES: Without any cyanosis. NEUROLOGIC: Normal speech, normal tone PSYCHIATRIC: Normal affect, normal mood. SKIN: No ulcerations DIAGNOSTIC TESTING: CT and echo reviewed. Lab Laboratory Tests Test 08/08/21 20:28 08/08/21 20:57 08/08/21 23:30 08/09/21 06:50 White Blood Count 9.5 x10^3/uL (4.0-11.0) Red Blood Count 3.94 x10^6/uL (3.50-5.40) Hemoglobin 12.4 g/dL (12.0-15.5) Hematocrit 36.0 % (36.0-47.0) Mean Corpuscular Volume 92 fL (79-100) Mean Corpuscular Hemoglobin 31 pg (25-35) Mean Corpuscular Hemoglobin Concent 34 g/dL (31-37) Red Cell Distribution Width 13.2 % (11.5-14.5) Platelet Count 296 x10^3/uL (140-400) Neutrophils (%) (Auto) 83 % (31-73) H Lymphocytes (%) (Auto) 10 % (24-48) L Monocytes (%) (Auto) 7 % (0-9) Eosinophils (%) (Auto) 0 % (0-3) Basophils (%) (Auto) 0 % (0-3) Neutrophils # (Auto) 7.8 x10^3/uL (1.8-7.7) H Lymphocytes # (Auto) 0.9 x10^3/uL (1.0-4.8) L Monocytes # (Auto) 0.7 x10^3/uL (0.0-1.1) Eosinophils # (Auto) 0.0 x10^3/uL (0.0-0.7) Basophils # (Auto) 0.0 x10^3/uL (0.0-0.2) Prothrombin Time 16.1 SEC (11.7-14.0) H Prothromb Time International Ratio 1.3 (0.8-1.1) H Activated Partial Thromboplast Time 42 SEC (24-38) H Sodium Level 135 mmol/L (136-145) L Potassium Level 4.2 mmol/L (3.5-5.1) Chloride Level 99 mmol/L (98-107) Carbon Dioxide Level 30 mmol/L (21-32) Anion Gap 6 (6-14) Blood Urea Nitrogen 15 mg/dL (7-20) Creatinine 1.1 mg/dL (0.6-1.0) H Estimated GFR (Cockcroft-Gault) 63.4 BUN/Creatinine Ratio 14 (6-20) Glucose Level 142 mg/dL (70-99) H Lactic Acid Level 0.6 mmol/L (0.4-2.0) Calcium Level 9.6 mg/dL (8.5-10.1) Total Bilirubin 0.4 mg/dL (0.2-1.0) Aspartate Amino Transf (AST/SGOT) 21 U/L (15-37) Alkaline Phosphatase 127 U/L (46-116) H Troponin I High Sensitivity 4 ng/L (4-50) 10 ng/L (4-50) Total Protein 7.9 g/dL (6.4-8.2) Albumin 3.1 g/dL (3.4-5.0) L Albumin/Globulin Ratio 0.6 (1.0-1.7) L Procalcitonin 0.10 ng/mL (0.00-0.10) Thyroid Stimulating Hormone (TSH) 1.055 uIU/mL (0.358-3.74) Influenza Type A Antigen Negative (NEGATIVE) Influenza Type B Antigen Negative (NEGATIVE) SARS-CoV-2 Antigen (Rapid) Negative (NEGATIVE) Urine Collection Type Void Urine Color (Auto) Light yellow Urine Turbidity Clear Urine pH (Auto) 6.0 (<5.0-8.0) Urine Specific [place] 1.038 (1.000-1.030) Urine Protein (Auto) Negative mg/dL (Negative) Urine Glucose (Auto)(UA) Negative mg/dL (Negative) Urine Ketones (Auto) Negative mg/dL (Negative) Urine Blood (Auto) Small (Negative) Urine Nitrite Negative (Negative) Urine Bilirubin (Auto) Negative (Negative) Urine Urobilinogen (Auto) Normal mg/dL (Normal) Urine Leukocyte Esterase (Auto) Negative (Negative) Urine RBC 1-2 /HPF (0-2) Urine WBC 5-10 /HPF (0-4) Urine Squamous Epithelial Cells Mod /LPF Urine Bacteria Few /HPF (0-FEW) Urine Mucus Slight /LPF Test 08/09/21 10:33 Troponin I High Sensitivity 9 ng/L (4-50) Laboratory Tests 08/08/21 20:28 ASSESSMENT: 1. Probable pericarditis in the setting of PNA 2. Negative cardiac stress test PLAN: 1. Continue abx and supportive care with anti-inflammatories. 2. f/u in the office in 2-3 months for repeat echo. Discussed with patient and at bedside. IFTIKHAR SU MD Aug 09, 2021 11:48
[2021-08-09] MEDS ORDERED: MELOXICAM 7.5 MG TABLET PO SCH (12:00)
--- NOTE | 2021-08-09 13:54 | PDOC1 ---
History and Physical Date of Service: DOS: DATE: 08/09/21 TIME: 13:40 Chief Complaint: Chief Complain: Shortness of breath History of Present Illness: HPI: 51-year-old male with no significant past medical history except for fibromyalgia who comes in for shortness of breath with exertion and substernal chest pain that has worsened in the past 2 days. She states that after her dobutamine stress test 2 days ago she had worsening symptoms right after the stress test. She presented to [facility] to the ED with a temperature of 100.9 and tachycardic in the 130s. Her EKG did show sinus tachycardia with T wave abnormalities in the high lateral leads. Denies vomiting, headache, neck pain/stiffness/meningismus, upper respiratory congestion/rhinorrhea, cough, sore throat, josef substernal chest pain, flank pain, midline back pain, abdominal pain, dysuria, hematuria, polyuria or oliguria, changes in bowel habits, pain or swelling to arms or legs. Past Medical/Surgical History: PMH/PSH: Past Medical History: FIBROMYALGIA Past Surgical History: BREAST REDUCTION Allergies: Allergies: Coded Allergies: Penicillins (Verified Allergy, Unknown, 04/01/18) Family History: Family History: Reviewed with no relative findings in the chart Social History: Social History: Smoking Status: Never Smoker Alcohol Use: None Drug Use: None Current Medications: Current Medications Current Medications Sodium Chloride 1,000 ml @ 1,000 mls/hr 1X ONCE IV Last administered on 08/08/21at 20:30; Start 08/08/21 at 20:30; Stop 08/08/21 at 21:29; Status DC Acetaminophen (Tylenol) 1,000 mg 1X ONCE PO Last administered on 08/08/21at 20:51; Start 08/08/21 at 20:30; Stop 08/08/21 at 20:33; Status DC Ketorolac Tromethamine (Toradol 15mg Vial) 15 mg 1X ONCE IVP Last administered on 08/08/21at 20:50; Start 08/08/21 at 20:30; Stop 08/08/21 at 20:33; Status DC Ondansetron HCl (Zofran) 4 mg 1X ONCE IVP Last administered on 08/08/21at 20:50; Start 08/08/21 at 20:30; Stop 08/08/21 at 20:33; Status DC Iohexol (Omnipaque 350 Mg/ml) 100 ml 1X ONCE IV ; Start 08/08/21 at 22:30; Stop 08/08/21 at 22:31; Status DC Info (CONTRAST GIVEN -- Rx MONITORING) 1 each PRN DAILY PRN MC SEE COMMENTS; Start 08/08/21 at 22:30; Stop 08/10/21 at 22:29 Sodium Chloride 1,000 ml @ 1,000 mls/hr 1X ONCE IV Last administered on 08/08/21at 23:30; Start 08/08/21 at 22:45; Stop 08/08/21 at 23:44; Status DC Prochlorperazine Edisylate (Compazine) 10 mg PRN Q6HRS PRN IM NAUSEA/VOMITING; Start 08/09/21 at 02:45 Ketorolac Tromethamine (Toradol 15mg Vial) 15 mg PRN Q6HRS PRN IVP INFLAMMATION Last administered on 08/09/21at 04:18; Start 08/09/21 at 04:15; Stop 08/09/21 at 11:06; Status DC Ibuprofen (Motrin) 800 mg 1X ONCE PO Last administered on 08/09/21at 05:56; Start 08/09/21 at 05:30; Stop 08/09/21 at 05:31; Status DC Colchicine (Colcrys) 0.6 mg 1X ONCE PO Last administered on 08/09/21at 05:55; Start 08/09/21 at 05:30; Stop 08/09/21 at 05:31; Status DC Ondansetron HCl (Zofran) 4 mg PRN Q8HRS PRN IVP NAUSEA/VOMITING; Start 08/09/21 at 05:30; Stop 08/10/21 at 05:29 Acetaminophen (Tylenol) 650 mg PRN Q4HRS PRN PO FEVER > 100.3'F; Start 08/09/21 at 05:30; Stop 08/10/21 at 05:29 Meloxicam (Mobic) 15 mg DAILY PO ; Start 08/09/21 at 12:00; Status Cancel Ketorolac Tromethamine (Toradol 15mg Vial) 15 mg PRN Q6HRS PRN IVP INFLAMMATION Last administered on 08/09/21at 11:38; Start 08/09/21 at 11:15; Stop 08/14/21 at 11:14 Active Scripts Active Reported Meloxicam 15 Mg Tablet 1 Tab PO DAILY 30 Days ROS: Review of Systems Review of System REVIEW OF SYSTEMS: GENERAL: Denies weakness SKIN: No bruising, hair changes or rashes. EYES: No blurred, double or loss of vision. NOSE AND THROAT: No history of nosebleeds, hoarseness or sore throat. HEART: No history of palpitations, chest pain or shortness of breath on exertion. LUNGS: Positive for shortness of breath GASTROINTESTINAL: Denies changes in appetite, nausea, vomiting, diarrhea or constipation. GENITOURINARY: No history of frequency, urgency, hesitancy or nocturia. NEUROLOGIC: Denies history of numbness, tingling, or tremor. PSYCHIATRIC: No history of panic, anxiety or depression. ENDOCRINE: No history of heat or cold intolerance, polyuria or polydipsia. EXTREMITIES: Denies joint pain, pain on walking or stiffness. Physical Exam: Vital Signs: Vital Signs Date Time Temp Pulse Resp B/P (MAP) Pulse Ox O2 Delivery O2 Flow Rate FiO2 08/09/21 09:42 Room Air 08/09/21 08:35 98.2 114 18 125/85 (98) 94 98.2 Physcial Exam: General: Well developed, well nourished, no acute distress, well appearing HEENT: Pupils equally round and reactive to light, EOMI, no discharge, normal conjunctiva Neck: Supple, no nuchal rigidity, no JVD, trachea midline, no tenderness Cardiac: RRR, no murmurs, no gallops, no rubs Chest/Lungs: CTAB, no wheeze, no rhonchi, no crackles. Nonreproducible pain upon palpation. Abdomen: soft, non-distended, no guarding, no peritoneal signs, non-tender Back: No tenderness Extremities: no edema, pulses intact, non-tender,capillary refill <3 sec bilateral upper and lower extremities, Neuro: Alert and oriented x 4, no focal deficits, normal speech Labs: Labs: Laboratory Tests Test 08/08/21 20:28 08/08/21 20:57 08/08/21 23:30 08/09/21 06:50 White Blood Count 9.5 x10^3/uL (4.0-11.0) Red Blood Count 3.94 x10^6/uL (3.50-5.40) Hemoglobin 12.4 g/dL (12.0-15.5) Hematocrit 36.0 % (36.0-47.0) Mean Corpuscular Volume 92 fL (79-100) Mean Corpuscular Hemoglobin 31 pg (25-35) Mean Corpuscular Hemoglobin Concent 34 g/dL (31-37) Red Cell Distribution Width 13.2 % (11.5-14.5) Platelet Count 296 x10^3/uL (140-400) Neutrophils (%) (Auto) 83 % (31-73) Lymphocytes (%) (Auto) 10 % (24-48) Monocytes (%) (Auto) 7 % (0-9) Eosinophils (%) (Auto) 0 % (0-3) Basophils (%) (Auto) 0 % (0-3) Neutrophils # (Auto) 7.8 x10^3/uL (1.8-7.7) Lymphocytes # (Auto) 0.9 x10^3/uL (1.0-4.8) Monocytes # (Auto) 0.7 x10^3/uL (0.0-1.1) Eosinophils # (Auto) 0.0 x10^3/uL (0.0-0.7) Basophils # (Auto) 0.0 x10^3/uL (0.0-0.2) Prothrombin Time 16.1 SEC (11.7-14.0) Prothromb Time International Ratio 1.3 (0.8-1.1) Activated Partial Thromboplast Time 42 SEC (24-38) Sodium Level 135 mmol/L (136-145) Potassium Level 4.2 mmol/L (3.5-5.1) Chloride Level 99 mmol/L (98-107) Carbon Dioxide Level 30 mmol/L (21-32) Anion Gap 6 (6-14) Blood Urea Nitrogen 15 mg/dL (7-20) Creatinine 1.1 mg/dL (0.6-1.0) Estimated GFR (Cockcroft-Gault) 63.4 BUN/Creatinine Ratio 14 (6-20) Glucose Level 142 mg/dL (70-99) Lactic Acid Level 0.6 mmol/L (0.4-2.0) Calcium Level 9.6 mg/dL (8.5-10.1) Total Bilirubin 0.4 mg/dL (0.2-1.0) Aspartate Amino Transf (AST/SGOT) 21 U/L (15-37) Alanine Aminotransferase (ALT/SGPT) 48 U/L (14-59) Alkaline Phosphatase 127 U/L (46-116) Troponin I High Sensitivity 4 ng/L (4-50) 10 ng/L (4-50) VY-Fka-M-Type Natriuretic Peptide 68 pg/mL (0-124) Total Protein 7.9 g/dL (6.4-8.2) Albumin 3.1 g/dL (3.4-5.0) Albumin/Globulin Ratio 0.6 (1.0-1.7) Procalcitonin 0.10 ng/mL (0.00-0.10) Thyroid Stimulating Hormone (TSH) 1.055 uIU/mL (0.358-3.74) Influenza Type A Antigen Negative (NEGATIVE) Influenza Type B Antigen Negative (NEGATIVE) SARS-CoV-2 Antigen (Rapid) Negative (NEGATIVE) Urine Collection Type Void Urine Color (Auto) Light yellow Urine Turbidity Clear Urine pH (Auto) 6.0 (<5.0-8.0) Urine Specific [place] 1.038 (1.000-1.030) Urine Protein (Auto) Negative mg/dL (Negative) Urine Glucose (Auto)(UA) Negative mg/dL (Negative) Urine Ketones (Auto) Negative mg/dL (Negative) Urine Blood (Auto) Small (Negative) Urine Nitrite Negative (Negative) Urine Bilirubin (Auto) Negative (Negative) Urine Urobilinogen (Auto) Normal mg/dL (Normal) Urine Leukocyte Esterase (Auto) Negative (Negative) Urine RBC 1-2 /HPF (0-2) Urine WBC 5-10 /HPF (0-4) Urine Squamous Epithelial Cells Mod /LPF Urine Bacteria Few /HPF (0-FEW) Urine Mucus Slight /LPF Test 08/09/21 10:33 Troponin I High Sensitivity 9 ng/L (4-50) Laboratory Tests Test 08/08/21 20:28 08/08/21 20:57 08/08/21 23:30 08/09/21 06:50 White Blood Count 9.5 x10^3/uL (4.0-11.0) Red Blood Count 3.94 x10^6/uL (3.50-5.40) Hemoglobin 12.4 g/dL (12.0-15.5) Hematocrit 36.0 % (36.0-47.0) Mean Corpuscular Volume 92 fL (79-100) Mean Corpuscular Hemoglobin 31 pg (25-35) Mean Corpuscular Hemoglobin Concent 34 g/dL (31-37) Red Cell Distribution Width 13.2 % (11.5-14.5) Platelet Count 296 x10^3/uL (140-400) Neutrophils (%) (Auto) 83 % (31-73) Lymphocytes (%) (Auto) 10 % (24-48) Monocytes (%) (Auto) 7 % (0-9) Eosinophils (%) (Auto) 0 % (0-3) Basophils (%) (Auto) 0 % (0-3) Neutrophils # (Auto) 7.8 x10^3/uL (1.8-7.7) Lymphocytes # (Auto) 0.9 x10^3/uL (1.0-4.8) Monocytes # (Auto) 0.7 x10^3/uL (0.0-1.1) Eosinophils # (Auto) 0.0 x10^3/uL (0.0-0.7) Basophils # (Auto) 0.0 x10^3/uL (0.0-0.2) Prothrombin Time 16.1 SEC (11.7-14.0) Prothromb Time International Ratio 1.3 (0.8-1.1) Activated Partial Thromboplast Time 42 SEC (24-38) Sodium Level 135 mmol/L (136-145) Potassium Level 4.2 mmol/L (3.5-5.1) Chloride Level 99 mmol/L (98-107) Carbon Dioxide Level 30 mmol/L (21-32) Anion Gap 6 (6-14) Blood Urea Nitrogen 15 mg/dL (7-20) Creatinine 1.1 mg/dL (0.6-1.0) Estimated GFR (Cockcroft-Gault) 63.4 BUN/Creatinine Ratio 14 (6-20) Glucose Level 142 mg/dL (70-99) Lactic Acid Level 0.6 mmol/L (0.4-2.0) Calcium Level 9.6 mg/dL (8.5-10.1) Total Bilirubin 0.4 mg/dL (0.2-1.0) Aspartate Amino Transf (AST/SGOT) 21 U/L (15-37) Alanine Aminotransferase (ALT/SGPT) 48 U/L (14-59) Alkaline Phosphatase 127 U/L (46-116) Troponin I High Sensitivity 4 ng/L (4-50) 10 ng/L (4-50) AJ-Tar-O-Type Natriuretic Peptide 68 pg/mL (0-124) Total Protein 7.9 g/dL (6.4-8.2) Albumin 3.1 g/dL (3.4-5.0) Albumin/Globulin Ratio 0.6 (1.0-1.7) Procalcitonin 0.10 ng/mL (0.00-0.10) Thyroid Stimulating Hormone (TSH) 1.055 uIU/mL (0.358-3.74) Influenza Type A Antigen Negative (NEGATIVE) Influenza Type B Antigen Negative (NEGATIVE) SARS-CoV-2 Antigen (Rapid) Negative (NEGATIVE) Urine Collection Type Void Urine Color (Auto) Light yellow Urine Turbidity Clear Urine pH (Auto) 6.0 (<5.0-8.0) Urine Specific [place] 1.038 (1.000-1.030) Urine Protein (Auto) Negative mg/dL (Negative) Urine Glucose (Auto)(UA) Negative mg/dL (Negative) Urine Ketones (Auto) Negative mg/dL (Negative) Urine Blood (Auto) Small (Negative) Urine Nitrite Negative (Negative) Urine Bilirubin (Auto) Negative (Negative) Urine Urobilinogen (Auto) Normal mg/dL (Normal) Urine Leukocyte Esterase (Auto) Negative (Negative) Urine RBC 1-2 /HPF (0-2) Urine WBC 5-10 /HPF (0-4) Urine Squamous Epithelial Cells Mod /LPF Urine Bacteria Few /HPF (0-FEW) Urine Mucus Slight /LPF Test 08/09/21 10:33 Troponin I High Sensitivity 9 ng/L (4-50) Images: Images PROCEDURE: CHEST AP ONLY Exam: Chest one view INDICATION: Chest pain, short of air TECHNIQUE: Frontal view of the chest Comparisons: 06/16/2021 FINDINGS: The cardiomediastinal silhouette and pulmonary vessels are within normal limits. Small left pleural effusion. Lungs are otherwise clear. IMPRESSION: Small left pleural effusion. PROCEDURE: CT ANGIOGRAPHY CHEST EXAM: CT chest with contrast - pulmonary embolus protocol CLINICAL HISTORY: Reason: SOA, tachycardia COMPARISON: 06/16/2021. TECHNIQUE: CT of the chest following the administration of intravenous contrast during the pulmonary arterial phase. Axial, coronal and sagittal reformatted images were generated including MIP images. ---PQRS compliance statement - One or more of the following individualized dose reduction techniques were utilized for this study: 1. Automated exposure control 2. Adjustment of the mA and/or kV according to patient size 3. Use of iterative reconstruction technique--- FINDINGS: CHEST: Technical factors resulted in delay in CT scanning following contrast administration. Minimal contrast is seen within the vasculature. Therefore this is nondiagnostic for the evaluation for pulmonary embolus. Within these constraints: Heart is not enlarged. There is a moderate pericardial effusion with enhancement of the pericardial wall, suspicious for pericarditis and can be further assessed by echocardiogram. This pericardial effusion is new compared to 06/16/2021. Trace pleural effusions. Dependent airspace opacities bilateral lower lobes, greater on the right likely consolidative process such as pneumonia. No suspicio us lung nodule or mass. No mediastinal or hilar lymphadenopathy. No axillary lymphadenopathy. Visualized Upper abdomen: Contrast is partially profiled in the medial collecting systems. Bones: Osseous structures are stable. Degenerative changes mid thoracic spine. IMPRESSION: 1. Technical factors resulted in delay in CT scanning following contrast administration. Minimal contrast is seen within the vasculature. Therefore this is nondiagnostic for the evaluation for pulmonary embolus. 2. There is a moderate pericardial effusion with enhancement of the pericardial wall, suspicious for pericarditis and can be further assessed by echocardiogram. 3. Trace pleural effusions. 4. Airspace opacities lower lobes likely consolidative processes pneumonia. Assessment/Plan Assessment/Plan Acute pericarditis with pericardial effusion, possible viral etiology History of fibromyalgia Atypical pneumonia, possible gram-negative organisms Morbid obesity Admit to hospitalist service for further management Cardiology consult for pericarditis Pending echo Continue empiric IV antibiotics Continue NSAIDs for chest wall pain Lovenox for DVT prophylaxis Protonix GI prophylaxis ADA diet CODE STATUS full Discussed with RN and SW Disposition inpatient management as above DPOA: Justifications for Admission Other Justification ANDREW EM MD Aug 09, 2021 13:54
[2021-08-09] MEDS ORDERED: LORazepam 0.5 MG TABLET PO PRN (14:00)
[2021-08-09] MEDS ORDERED: diphenhydrAMINE 50 MG/ML VIAL IVP PRN (14:00)
[2021-08-09] MEDS ORDERED: SENNOSIDES 8.6 MG TABLET PO PRN (14:00)
[2021-08-09] MEDS ORDERED: diphenhydrAMINE HCL 25 MG CAPSULE PO PRN ×2 (14:00)
[2021-08-09] MEDS ORDERED: PROCHLORPERAZINE 10 MG/2 ML VIAL. IV PRN (14:00)
[2021-08-09] MEDS ORDERED: ZOLPIDEM 5 MG TABLET. PO PRN (14:00)
[2021-08-09] MEDS ORDERED: DEXTROSE 50% 25 GM / 50ML DISP.SYRIN. IV PRN (14:00)
[2021-08-09] MEDS ORDERED: DOCUSATE SODIUM 100 MG CAPSULE. PO PRN (14:00)
[2021-08-09 15:00] VITALS: BP 136/66
[2021-08-09] MEDS ORDERED: cefTRIAXone IV Push 1 GM VIAL. IVP SCH (15:00)
[2021-08-09] MEDS ORDERED: AZITHROMYCIN 500 MG in IV NORMAL SALINE 250ML 250 ML IV SCH (15:00)
--- NOTE | 2021-08-09 16:58 | CARD ---
MR#: [id number] Date of Study: 08/09/2021 Ordering Physician: ANDREW EM, Referring Physician: ANDREW EM, Tech: [facility] APPROVED REPORT EXAM: LIMITED Two-dimensional and M-mode echocardiogram with Doppler and color Doppler. Other Information Quality : FairHR: 111bpm Rhythm : Tachycardia INDICATION Pericardial Effusion RISK FACTORS Fibromyalgia Moderate pericardial effusion seen on CT scan. 2D DIMENSIONS IVSd0.9 (0.7-1.1cm)LVDd4.4 (3.9-5.9cm) PWd0.8 (0.7-1.1cm)LVDs2.7 (2.5-4.0cm) FS (%) 38.6 %SV60.4 ml LVEF(%)69.2 (>50%) Aortic Valve AoV Peak Shine.155.9cm/sAoV VTI20.9cm AO Peak GR.9.7mmHgLVOT VTI 17.54cm AO Mean GR.5mmHg Tricuspid Valve TR P. Hybtnipe071ci/sTR Peak Gr.23mmHg LEFT VENTRICLE The left ventricle is normal size. There is normal left ventricular wall thickness. The left ventricu lar systolic function is normal and the ejection fraction is within normal range. EF 55% There is nor mal LV segmental wall motion. Tissue Doppler imaging reveals mild left ventricular diastolic dysfunct ion. No left ventricle thrombus noted on this study. There is no ventricular septal defect visualized . There is no left ventricular aneurysm. There is no mass noted in the left ventricle. RIGHT VENTRICLE The right ventricle is normal size. There is normal right ventricular wall thickness. The right ventr icular systolic function is normal. ATRIA The left atrium size is normal. The right atrium size is normal. The interatrial septum is intact wit h no evidence for an atrial septal defect or patent foramen ovale as noted on 2-D or Doppler imaging. AORTIC VALVE The aortic valve is normal in structure and function. Doppler and Color Flow revealed no significant aortic regurgitation. There is no significant aortic valvular stenosis. There is no aortic valvular v egetation. MITRAL VALVE The mitral valve is normal in structure and function. There is no evidence of mitral valve prolapse. There is no mitral valve stenosis. Doppler and Color-flow revealed trace mitral regurgitation. TRICUSPID VALVE The tricuspid valve is normal in structure and function. Doppler and Color Flow revealed trace tricus pid regurgitation. There is no tricuspid valve prolapse or vegetation. There is no tricuspid valve st enosis. PULMONIC VALVE Doppler and Color Flow revealed no pulmonic valvular regurgitation. There is no pulmonic valvular cesar nosis. GREAT VESSELS The aortic root is normal in size. The ascending aorta is normal in size. The IVC is normal in size a nd collapses >50% with inspiration. PERICARDIAL EFFUSION There is no pleural effusion. small pericardial effusion without clear evidence of tamponade physiolo gy. Critical Notification Critical Value: No <Conclusion> The left ventricular systolic function is normal and the ejection fraction is within normal range. EF 55% There is normal LV segmental wall motion. small pericardial effusion without clear evidence of tamponade physiology. Signed by : Maximus Oliver, Electronically Approved : 08/09/2021 16:58:07
[2021-08-09 19:49] VITALS: BP 138/63
[2021-08-09 23:00] VITALS: BP 129/67
[2021-08-10 03:35] VITALS: BP 118/70
[2021-08-10 04:21] LABS: BASO % 0 % (0-3); EOS # 0.1 x10^3/uL (0.0-0.7); EOS % 1 % (0-3); HEMATOCRIT 33.3 % (36.0-47.0); HEMOGLOBIN 10.8 g/dL (12.0-15.5); LYMPH # 1.1 x10^3/uL (1.0-4.8); LYMPH % 12 % (24-48); MEAN CORPUSCULAR HEMOGLOBIN 30 pg (25-35); MEAN CORPUSCULAR HGB CONC 33 g/dL (31-37); MEAN CORPUSCULAR VOLUME 92 fL (79-100); MONO # 0.8 x10^3/uL (0.0-1.1); MONO % 9 % (0-9); NEUT # 7.1 x10^3/uL (1.8-7.7); NEUT % 78 % (31-73); PLATELET COUNT 274 x10^3/uL (140-400); RED BLOOD COUNT 3.63 x10^6/uL (3.50-5.40); RED CELL DISTRIBUTION WIDTH 13.3 % (11.5-14.5); WHITE BLOOD COUNT 9.1 x10^3/uL (4.0-11.0)
[2021-08-10 05:14] LABS: CALCIUM 9.5 mg/dL (8.5-10.1); GFR 70.7; MAGNESIUM 2.3 mg/dL (1.8-2.4); PHOSPHORUS 3.2 mg/dL (2.6-4.7); POTASSIUM 4.3 mmol/L (3.5-5.1)
[2021-08-10 07:00] VITALS: BP_SYST 125; BP_SYST 127; BP_DIAS 74; BP_DIAS 89
[2021-08-10] MEDS ORDERED: PANTOPRAZOLE 40 MG TABLET.DR. PO SCH (07:30)
[2021-08-10] MEDS ORDERED: ENOXAPARIN 40 MG/0.4 ML SYRINGE. SQ SCH (09:00)
[2021-08-10 11:00] VITALS: BP 140/74
[2021-08-10] MEDS ORDERED: LEVO500T9 PO (12:37)
[2021-08-10] MEDS ORDERED: IBUP-1027 PO (12:37)
[2021-08-10] MEDS ORDERED: PANT40TA77 PO (12:37)
--- NOTE | 2021-08-10 12:41 | DISCH ---
DISCHARGE INSTRUCTIONS Condition on Discharge Condition on Discharge: Stable Activity After Discharge Activity Instructions for Disc: Activity as tolerated Exercise Instruction after Dis: Walk 30 min, 5 x per week Driving Instructions after Dis: Do not drive today Weight Bearing Status after Di: As tolerated Diet after Discharge Diet after Discharge: Cardiac Follow-Up Follow up with: PCP within 2 weeks of discharge Follow Up With: Cardiology for repeat echo as scheduled ANDREW EM MD Aug 10, 2021 12:41
--- NOTE | 2021-08-10 13:57 | PDOC ---
CARDIOLOGY PROGRESS NOTE SUBJECTIVE: No acute events overnight. Patient remains mildly tachycardic. She denies any chest pain and reports that she is feeling better. No syncope. OBJECTIVE: Vital Signs/I&O: Vital Signs Date Time Temp Pulse Resp B/P (MAP) Pulse Ox O2 Delivery O2 Flow Rate FiO2 08/10/21 11:00 99.0 126 20 140/74 (96) 96 Room Air 99.0 I & O 08/09/21 08/09/21 08/10/21 15:00 23:00 07:00 Intake Total 180 ml 280 ml 200 ml Balance 180 ml 280 ml 200 ml Objective: GEN.: No apparent distress. Alert and oriented. HEENT: Head is normocephalic, atraumatic NECK: Supple. LUNGS: Clear to auscultation. HEART: RRR, S1, S2 present. Peripheral pulses intact ABDOMEN: Soft, nontender. Positive bowel sounds. EXTREMITIES: Without any cyanosis. NEUROLOGIC: Normal speech, normal tone PSYCHIATRIC: Normal affect, normal mood. SKIN: No ulcerations CURRENT MEDICATIONS: Current Medications Medications (Trade) Dose Ordered Sig/Nancy Route PRN Reason Start Time Stop Time Status Last Admin Dose Admin Enoxaparin Sodium (Lovenox 40mg Syringe) 40 mg DAILY SQ 08/10/21 09:00 08/10/21 09:10 Pantoprazole Sodium (Protonix) 40 mg DAILYAC PO 08/10/21 07:30 08/10/21 09:09 Diphenhydramine HCl (Benadryl) 25 mg PRN Q6HRS PRN PO ITCHING 08/09/21 14:00 08/09/21 22:15 Levofloxacin/ Dextrose 100 ml @ 100 mls/hr Q24H IV 08/09/21 16:00 08/09/21 15:16 DIAGNOSTIC TESTING: No new labs. Telemetry demonstrates sinus tachycardia Labs: Laboratory Tests 08/10/21 03:45 Laboratory Tests Test 08/10/21 03:45 White Blood Count 9.1 x10^3/uL (4.0-11.0) Red Blood Count 3.63 x10^6/uL (3.50-5.40) Hemoglobin 10.8 g/dL (12.0-15.5) L Hematocrit 33.3 % (36.0-47.0) L Mean Corpuscular Volume 92 fL (79-100) Mean Corpuscular Hemoglobin 30 pg (25-35) Mean Corpuscular Hemoglobin Concent 33 g/dL (31-37) Red Cell Distribution Width 13.3 % (11.5-14.5) Platelet Count 274 x10^3/uL (140-400) Neutrophils (%) (Auto) 78 % (31-73) H Lymphocytes (%) (Auto) 12 % (24-48) L Monocytes (%) (Auto) 9 % (0-9) Eosinophils (%) (Auto) 1 % (0-3) Basophils (%) (Auto) 0 % (0-3) Neutrophils # (Auto) 7.1 x10^3/uL (1.8-7.7) Lymphocytes # (Auto) 1.1 x10^3/uL (1.0-4.8) Monocytes # (Auto) 0.8 x10^3/uL (0.0-1.1) Eosinophils # (Auto) 0.1 x10^3/uL (0.0-0.7) Basophils # (Auto) 0.0 x10^3/uL (0.0-0.2) Sodium Level 139 mmol/L (136-145) Potassium Level 4.3 mmol/L (3.5-5.1) Chloride Level 104 mmol/L (98-107) Carbon Dioxide Level 28 mmol/L (21-32) Anion Gap 7 (6-14) Blood Urea Nitrogen 13 mg/dL (7-20) Creatinine 1.0 mg/dL (0.6-1.0) Estimated GFR (Cockcroft-Gault) 70.7 Glucose Level 104 mg/dL (70-99) H Calcium Level 9.5 mg/dL (8.5-10.1) Phosphorus Level 3.2 mg/dL (2.6-4.7) ASSESSMENT: 1. Chest pain likely secondary to mild pericarditis and small pericardial effusion 2. Pneumonia 3. Fibromyalgia 4. Hypertension PLAN: 1. Discussed with patient and family at bedside. Suspect that her triggering event is likely pneumonia. Discussed with primary physician as well. Plan for antibiotics and anti-inflammatories. 2. If she is improving over the next week or 2 then she will just follow-up with us in 2 to 3 months for repeat echocardiogram otherwise if she has any worsening symptoms could consider further expedited evaluation. This was discussed with the patient, her and son at bedside. Thanks for the consultation. Okay to discharge from a cardiac perspective and the sinus tachycardia is likely secondary and the patient was advised to c ontinue hydration. Justicifation of Admission Dx: Justifications for Admission: Justification of Admission Dx: N/A IFTIKHAR SU MD Aug 10, 2021 13:57
[2021-08-10 15:33] VITALS: BP 149/68
--- NOTE | 2021-08-10 15:50 | NUR ---
Discharge Note: ARIANNA MONROY [address] [place] [address] Discharge instructions and discharge home medications reviewed with Patient and a copy given. All questions have been answered and understanding verbalized. The following instructions and handouts were given: discharge instructions, follow ups, education about dx & meds, med list. Discontinued lines and drains: Peripheral IV intact. Patient discharged to Home or Self Care with Spouse via Wheelchair at 1550.
[2021-08-10] MEDS ORDERED: LACTOBACILLUS RHAMNOSUS GG 1 CAPSULE. PO SCH (21:00)
--- NOTE | 2021-08-14 11:46 | PDOC3 ---
[facility]-Discharge Summary Date of Admission: Date of Admission: Aug 09, 2021 Date of Discharge: Date of Discharge: Aug 10, 2021 Discharge Diagnosis: Discharge Diagnosis: Acute pericarditis with pericardial effusion, possible viral etiology History of fibromyalgia Atypical pneumonia, possible gram-negative organisms Morbid obesity Consults: Consults: Per cardiology: PLAN: 1. Discussed with patient and family at bedside. Suspect that her triggering event is likely pneumonia. Discussed with primary physician as well. Plan for antibiotics and anti-inflammatories. 2. If she is improving over the next week or 2 then she will just follow-up with us in 2 to 3 months for repeat echocardiogram otherwise if she has any wo rsening symptoms could consider further expedited evaluation. This was discussed with the patient, her and son at bedside. Thanks for the consultation. Okay to discharge from a cardiac perspective and the sinus tachycardia is likely secondary and the patient was advised to continue hydration. Procedures: Procedures: PROCEDURE: CT ANGIOGRAPHY CHEST EXAM: CT chest with contrast - pulmonary embolus protocol CLINICAL HISTORY: Reason: SOA, tachycardia COMPARISON: 06/16/2021. TECHNIQUE: CT of the chest following the administration of intravenous contrast during the pulmonary arterial phase. Axial, coronal and sagittal reformatted images were generated including MIP images. ---PQRS compliance statement - One or more of the following individualized dose reduction techniques were utilized for this study: 1. Automated exposure control 2. Adjustment of the mA and/or kV according to patient size 3. Use of iterative reconstruction technique--- FINDINGS: CHEST: Technical factors resulted in delay in CT scanning following contrast administration. Minimal contrast is seen within the vasculature. Therefore this is nondiagnostic for the evaluation for pulmonary embolus. Within these constraints: Heart is not enlarged. There is a moderate pericardial effusion with enhancement of the pericardial wall, suspicious for pericarditis and can be further assessed by echocardiogram. This pericardial effusion is new compared to 06/16/2021. Trace pleural effusions. Dependent airspace opacities bilateral lower lobes, greater on the right likely consolidative process such as pneumonia. No suspicious lung nodule or mass. No mediastinal or hilar lymphadenopathy. No axillary lymphadenopathy. Visualized Upper abdomen: Contrast is partially profiled in the medial collecting systems. Bones: Osseous structures are stable. Degenerative changes mid thoracic spine. IMPRESSION: 1. Technical factors resulted in delay in CT scanning following contrast administration. Minimal contrast is seen within the vasculature. Therefore this is nondiagnostic for the evaluation for pulmonary embolus. 2. There is a moderate pericardial effusion with enhancement of the pericardial wall, suspicious for pericarditis and can be further assessed by echocardiogram. 3. Trace pleural effusions. 4. Airspace opacities lower lobes likely consolidative processes pneumonia. PROCEDURE: LIMITED ECHO MR#: [id number] Date of Study: 08/09/2021 Ordering Physician: ANDREW EM, Referring Physician: ANDREW EM, Tech: Garfield Roberson [facility] APPROVED REPORT EXAM: LIMITED Two-dimensional and M-mode echocardiogram with Doppler and color Doppler. Other Information Quality : Fair HR: 111bpm Rhythm : Tachycardia INDICATION Pericardial Effusion RISK FACTORS Fibromyalgia Moderate pericardial effusion seen on CT scan. 2D DIMENSIONS IVSd 0.9 (0.7-1.1cm) LVDd 4.4 (3.9-5.9cm) PWd 0.8 (0.7-1.1cm) LVDs 2.7 (2.5-4.0cm) FS (%) 38.6 % SV 60.4 ml LVEF(%) 69.2 (>50%) Aortic Valve AoV Peak Shine. 155.9cm/s AoV VTI 20.9cm AO Peak GR. 9.7mmHg LVOT VTI 17.54cm AO Mean GR. 5mmHg Tricuspid Valve TR P. Velocity 242cm/s TR Peak Gr. 23mmHg LEFT VENTRICLE The left ventricle is normal size. There is normal left ventricular wall thickness. The left ventricular systolic function is normal and the ejection fraction is within normal range. EF 55% There is normal LV segmental wall motion. Tissue Doppler imaging reveals mild left ventricular diastolic dysfunction. No left ventricle thrombus noted on this study. There is no ventricular septal defect visualized. There is no left ventricular aneurysm. There is no mass noted in the left ventricle. RIGHT VENTRICLE The right ventricle is normal size. There is normal right ventricular wall thickness. The right ventricular systolic function is normal. ATRIA The left atrium size is normal. The right atrium size is normal. The interatrial septum is intact with no evidence for an atrial septal defect or patent foramen ovale as noted on 2-D or Doppler imaging. AORTIC VALVE The aortic valve is normal in structure and function. Doppler and Color Flow revealed no significant aortic regurgitation. There is no significant aortic valvular stenosis. There is no aortic valvular vegetation. MITRAL VALVE The mitral valve is normal in structure and function. There is no evidence of mitral valve prolapse. There is no mitral valve stenosis. Doppler and Color-flow revealed trace mitral regurgitation. TRICUSPID VALVE The tricuspid valve is normal in structure and function. Doppler and Color Flow revealed trace tricuspid regurgitation. There is no tricuspid valve prolapse or vegetation. There is no tricuspid valve stenosis. PULMONIC VALVE Doppler and Color Flow revealed no pulmonic valvular regurgitation. There is no pulmonic valvular stenosis. GREAT VESSELS The aortic root is normal in size. The ascending aorta is normal in size. The IVC is normal in size and collapses >50% with inspiration. PERICARDIAL EFFUSION There is no pleural effusion. small pericardial effusion without clear evidence of tamponade physiology. Critical Notification Critical Value: No <Conclusion> The left ventricular systolic function is normal and the ejection fraction is within normal range. EF 55% There is normal LV segmental wall motion. small pericardial effusion without clear evidence of tamponade physiology. Hospital Course: Hospital Course: 51-year-old male with no significant past medical history except for fibromyalgia who comes in for shortness of breath with exertion and substernal chest pain that has worsened in the past 2 days. She states that after her dobutamine stress test 2 days ago she had worsening symptoms right after the stress test. [facility] ED with a temperature of 100.9 and tachycardic in the 130s. Her EKG did show sinus tachycardia with T wave abnormalities in the high lateral leads. Denies vomiting, headache, neck pain/stiffness/meningismus, upper respiratory congestion/rhinorrhea, cough, sore throat, josef substernal chest pain, flank pain, midline back pain, abdominal pain, dysuria, hematuria, polyuria or oliguria, changes in bowel habits, pain or swelling to arms or legs. Patient was admitted and evaluated by cardiology. See recommendations above. Patient's pain improved by day of discharge. She was instructed to take ibupr ofen as needed for pain control. Rest of hospital course was uneventful. Disposition: Disposition/Orders: D/C to Home Activity: Activity: Resume previous activity Diet: Diet: Cardiac Medications: Home Meds Active Scripts Levofloxacin (LEVOFLOXACIN) 500 Mg Tablet, 1 TAB PO DAILY for pneumonia for 5 Days, #5 TAB Prov:ANDREW EM MD 08/10/21 Pantoprazole Sodium (PANTOPRAZOLE SODIUM ) 40 Mg Tablet.dr, 40 MG PO DAILYAC for REflux for 14 Days, #14 TAB.SR 2 Refills Prov:ANDREW EM MD 08/10/21 Ibuprofen (IBUPROFEN) 400 Mg Tablet, 400 MG PO PRN Q6HRS PRN for INFLAMMATION for 3 Days, #12 TAB Prov:ANDREW EM MD 08/10/21 Discontinued Reported Medications Meloxicam (MELOXICAM) 15 Mg Tablet, 1 TAB PO DAILY for Pain for 30 Days, #30 TAB 0 Refills 08/09/21 Scheduled Levofloxacin (Levofloxacin), 1 TAB PO DAILY Pantoprazole Sodium (Pantoprazole Sodium ), 40 MG PO DAILYAC Scheduled PRN Ibuprofen (Ibuprofen), 400 MG PO PRN Q6HRS PRN for INFLAMMATION Discontinued Medications Meloxicam (Meloxicam), 1 TAB PO DAILY, (Reported) Total Time: Total Time: Total time spent was 35 minutes in preparing scripts, discharge planning with SWI and RN and preparing this discharge summary Patient seen and examined on day of discharge. No acute abnormal findings. Justicifation of Admission Dx: Justifications for Admission: Justification of Admission Dx: N/A ANDREW EM MD Aug 14, 2021 11:46
== END 2021-08-10 15:50 | disposition home or self-care (01) | DRG 314 ==
LOC: ER 19:58 → ED HOLD 08-09 00:45 → 6 SOUTH 08-09 08:34
PROVIDERS: ADMIT Family Medicine; ATTEND Family Medicine
DX: I30.1 Infective pericarditis (principal); J15.6 Pneumonia due to other Gram-negative bacteria; I31.3 Pericardial effusion (noninflammatory); I10 Essential (primary) hypertension; M79.7 Fibromyalgia; Z20.822 Contact with and (suspected) exposure to COVID-19; Z88.0 Allergy status to penicillin; B97.89 Other viral agents as the cause of diseases classified elsewhere; E66.01 Morbid (severe) obesity due to excess calories; Z68.39 Body mass index [BMI] 39.0-39.9, adult
CPT/HCPCS: 36415; 71045; 71275; 80048; 80053; 81001; 83605; 83735; 83880; 84100; 84145; 84443; 84484; 85025; 85610; 85730; 87040; 87086; 87428; 93005; 93308; 96361; 96374; J1650; J1885; J1956; J2405; J7030; 99291-25; G0378; Q0163

== ENCOUNTER → 2021-08-26 | Outpatient (CLI) | payer BC ==
[2021-08-10 15:33] VITALS: BP 149/68
[~2021-08-26] MED LIST changes: +IBUP-1027 PO; +LEVO500T9 PO; +MELO15TA23 PO; +PANT40TA77 PO
--- NOTE | 2021-08-26 13:25 | CARD ---
MR#: [id number] Date of Study: 08/26/2021 Ordering Physician: SHARIFA JEAN, Referring Physician: SHARIFA JEAN, Tech: Joann Lopez [facility] APPROVED REPORT EXAM: Two-dimensional and M-mode echocardiogram with Doppler and color Doppler. Other Information Quality : GoodHR: 90bpm Rhythm : NSRTechnically limited study due to body habitus. INDICATION Pericarditis 2D DIMENSIONS Left Atrium(2D)2.7 (1.6-4.0cm)IVSd1.0 (0.7-1.1cm) Aortic Root(2D)2.2 (2.0-3.7cm)LVDd3.8 (3.9-5.9cm) LVOT Diameter2.0 (1.8-2.4cm)PWd0.9 (0.7-1.1cm) LVDs2.8 (2.5-4.0cm)FS (%) 26.7 % SV32.7 mlLVEF(%)52.9 (>50%) Aortic Valve AoV Peak Shine.110.9cm/Dustin Peak GR.5.8mmHg LVOT Peak Shine.85.2cm/sAVA (VMAX)2.50cm2 Mitral Valve MV E Rxtcelwn89.1cm/sMV DECEL [id number] MV A Hmjvcbtl05.8cm/sE/A Ratio1.0 Pulmonary Valve PV Peak Cexxuvcc81.9cm/s Tricuspid Valve TR P. [id number]/sRAP [id number] TR Peak Gr.[id number] Pulmonary Vein S1 Dimtutcg70.4cm/sD2 Urbrzjbr04.6cm/s PVa [id number] LEFT VENTRICLE The left ventricle is normal size. There is normal left ventricular wall thickness. The left ventricu lar ejection fraction is within the normal range. The Ejection Fraction is 50-55%. No regional wall m otion abnormalities noted. The left ventricular diastolic function is normal. No left ventricle throm bus noted on this study. There is no ventricular septal defect visualized. There is no left ventricul ar aneurysm. There is no mass noted in the left ventricle. RIGHT VENTRICLE The right ventricle is normal size. There is normal right ventricular wall thickness. The right ventr icular systolic function is normal. ATRIA The left atrium size is normal. The right atrium size is normal. The interatrial septum is intact wit h no evidence for an atrial septal defect or patent foramen ovale as noted on 2-D or Doppler imaging. AORTIC VALVE The aortic valve is normal in structure and function. No aortic regurgitation is present. There is no aortic valvular stenosis. There is no aortic valvular vegetation. MITRAL VALVE The mitral valve is normal in structure and function. There is no evidence of mitral valve prolapse. There is no mitral valve stenosis. Doppler and Color-flow revealed trace mitral regurgitation. TRICUSPID VALVE The tricuspid valve is normal in structure and function. Doppler and Color Flow revealed trace tricus pid regurgitation. The pulmonary artery systolic pressure is estimated at less than 30 mmHg. There is no tricuspid valve prolapse or vegetation. There is no tricuspid valve stenosis. PULMONIC VALVE There is no pulmonic valvular regurgitation. There is no pulmonic valvular stenosis. GREAT VESSELS The aortic root is normal in size. The ascending aorta is normal in size. The IVC is normal in size a nd collapses >50% with inspiration. PERICARDIAL EFFUSION There is no pleural effusion. There is no evidence of significant pericardial effusion. Critical Notification Critical Value: No <Conclusion> The left ventricular ejection fraction is within the normal range. The Ejection Fraction is 50-55%. No regional wall motion abnormalities noted. Signed by : Maximus Oliver, Electronically Approved : 08/26/2021 13:25:05
== END ==
LOC: ECHO 07:42
PROVIDERS: ATTEND Internal Medicine Cardiovascular Disease
DX: I31.9 Disease of pericardium, unspecified (principal)
CPT/HCPCS: 93306; C8929